=== PATIENT | female | born 1990 | race American Indian/Alaskan Native ===

== ENCOUNTER 2021-06-09 09:05 | Outpatient (REF) | payer OTHER, SELFPAY ==
[2021-06-09 10:54] LABS: MANUAL DIFF FLAG NO
[2021-06-09 10:58] LABS: Basophils Percent Auto 0.4 % (0-2); Eosinophils Absolute Auto 0.3 X10*3/uL (0.0-0.4); Eosinophils Percent Auto 3.8 % (0-4); Hematocrit 43.2 % (37.0-47.0); Hemoglobin 14.5 g/dl (12.0-16.0); Imm Gran Abs Auto 0.03 X10*3/uL (0.00-0.03); Imm Gran Pct Auto 0.3 % (0.0-0.4); Lymphocytes Absolute Auto 1.7 X10*3/uL (1.2-4.9); Lymphocytes Percent Auto 18.7 % (20-40); Mean Corpuscular HGB Conc 33.6 g/dl (31.0-35.0); Mean Corpuscular Hemoglobin 29.6 pg (27.0-33.0); Mean Corpuscular Volume 88.2 fL (80.0-98.0); Mean Platelet Volume 9.5 fL (9.4-12.3); Monocytes Absolute Auto 0.4 X10*3/uL (0.1-1.2); Monocytes Percent Auto 4.3 % (2-11); Neutrophils Absolute Auto 6.5 x10*3/uL (2.0-8.3); Neutrophils Percent Auto 72.5 % (45-73); Platelet Count 377 X10*3/uL (160-400); Red Cell Distribution Width 12.2 % (11.0-16.0); White Blood Count 8.9 X10*3/uL (4.8-10.8)
[2021-06-09 11:39] LABS: Alanine Aminotransferase 16 U/L (0-31); Albumin Level 3.8 g/dL (3.5-5.0); Alkaline Phosphatase 93 U/L (39-117); Anion Gap 11 (12-20); Aspartate Amino Transferase 14 U/L (5-31); Bilirubin Total 0.3 mg/dL (0.0-1.0); Blood Urea Nitrogen 10 mg/dL (9-16); Calcium 8.9 mg/dL (8.4-10.2); Carbon Dioxide 26 mmol/L (22-29); Chloride 106 mmol/L (96-108); Cholesterol 175 mg/dL; Estimated Glomerular Filt Rate > 60; Glucose Fasting 95 mg/dL (60-99); HDL Cholesterol 49 mg/dL; LDL Cholesterol Calculated 104 mg/dl; Potassium 4.5 mmol/L (3.3-5.1); Sodium 138 mmol/L (135-145); Total Protein 6.7 g/dL (6.5-8.0); Triglycerides 111 mg/dL
[2021-06-09 11:51] LABS: Ferritin 64 ng/mL (10-122); TSH reflex Free T4 0.84 uIU/mL (0.32-4.0)
[2021-06-11 08:32] LABS: Vitamin B12 231 pg/mL (200-900)
[2021-06-14 14:36] LABS: Vitamin D 25-OH, D2 <4 ng/mL; Vitamin D 25-OH, D3 20 ng/mL; Vitamin D 25-OH, Total 20 ng/mL (30-100)
== END 2021-06-09 09:06 | disposition home or self-care (01) ==
LOC: HO.HMGCLDS 09:05
PROVIDERS: PCP Internal Medicine; Visit Provider Internal Medicine
DX: E66.09 Other obesity due to excess calories (principal); F41.1 Generalized anxiety disorder; L65.9 Nonscarring hair loss, unspecified; R51.9 Headache, unspecified; Z13.9 Encounter for screening, unspecified
CPT/HCPCS: 36415; 80053; 80061; 82306; 82607; 82728; 84443; 85025

== ENCOUNTER → 2021-10-03 13:17 | Outpatient (BNVA) | payer OTHER, SELFPAY | PROVIDERS: PCP Internal Medicine; Visit Provider Physician Assistant | DX: T23.242A Burn of second degree of multiple left fingers (nail), including thumb, initial encounter (principal); X58.XXXA Exposure to other specified factors, initial encounter | CPT/HCPCS: 99203 ==

== ENCOUNTER → 2021-10-05 08:57 | Outpatient (BNVA) | payer OTHER, SELFPAY | PROVIDERS: PCP Internal Medicine; Visit Provider Physician Assistant | DX: T23.242A Burn of second degree of multiple left fingers (nail), including thumb, initial encounter (principal); X08.8XXA Exposure to other specified smoke, fire and flames, initial encounter | CPT/HCPCS: 99213 ==

== ENCOUNTER 2022-03-30 09:50 | Outpatient (REF) | payer OTHER, SELFPAY ==
[2022-03-30 11:40] LABS: MANUAL DIFF FLAG NO
[2022-03-30 11:53] LABS: Basophils Absolute Auto 0.1 X10*3/uL (0.0-0.2); Basophils Percent Auto 0.5 % (0-2); Eosinophils Absolute Auto 0.3 X10*3/uL (0.0-0.4); Eosinophils Percent Auto 2.9 % (0-4); Hematocrit 44.4 % (37.0-47.0); Imm Gran Abs Auto 0.03 X10*3/uL (0.00-0.03); Imm Gran Pct Auto 0.3 % (0.0-0.4); Lymphocytes Absolute Auto 2.7 X10*3/uL (1.2-4.9); Lymphocytes Percent Auto 24.9 % (20-40); Mean Corpuscular HGB Conc 33.8 g/dl (31.0-35.0); Mean Corpuscular Hemoglobin 29.6 pg (27.0-33.0); Mean Corpuscular Volume 87.7 fL (80.0-98.0); Mean Platelet Volume 9.6 fL (9.4-12.3); Monocytes Absolute Auto 0.6 X10*3/uL (0.1-1.2); Monocytes Percent Auto 5.1 % (2-11); Neutrophils Absolute Auto 7.2 x10*3/uL (2.0-8.3); Neutrophils Percent Auto 66.3 % (45-73); Platelet Count 365 X10*3/uL (160-400); Red Blood Count 5.06 X10*6/uL (4.20-5.50); Red Cell Distribution Width 12.6 % (11.0-16.0); White Blood Count 10.9 X10*3/uL (4.8-10.8)
[2022-03-30 12:04] LABS: Alanine Aminotransferase 13 U/L (0-31); Albumin Level 4.4 g/dL (3.5-5.0); Alkaline Phosphatase 98 U/L (39-117); Anion Gap 15 (12-20); Aspartate Amino Transferase 16 U/L (5-31); Bilirubin Total 0.6 mg/dL (0.0-1.0); Blood Urea Nitrogen 9 mg/dL (9-16); Calcium 9.4 mg/dL (8.4-10.2); Carbon Dioxide 25 mmol/L (22-29); Chloride 101 mmol/L (96-108); Estimated Glomerular Filt Rate > 60; Glucose Random 89 mg/dL (60-115); Potassium 4.4 mmol/L (3.3-5.1); Sodium 137 mmol/L (135-145); Total Protein 7.5 g/dL (6.5-8.0)
[2022-03-30 12:26] LABS: TSH reflex Free T4 1.07 uIU/mL (0.32-4.0)
[2022-04-01 22:32] LABS: Thyroglobulin Antibodies <1 IU/mL (< or = 1)
== END 2022-03-30 09:51 | disposition home or self-care (01) ==
LOC: HO.HMGCLDS 09:50
PROVIDERS: PCP Internal Medicine; Visit Provider Internal Medicine
DX: B00.1 Herpesviral vesicular dermatitis (principal); L65.9 Nonscarring hair loss, unspecified; L60.3 Nail dystrophy; M79.10 Myalgia, unspecified site; R53.83 Other fatigue; E66.09 Other obesity due to excess calories
CPT/HCPCS: 36415; 80053; 84443; 85025; 86800

== ENCOUNTER 2023-02-10 09:16 | Outpatient (AMB) | payer OTHER, SELFPAY ==
--- NOTE | 2023-02-10 10:09 | AM.OFFWIN_ITS ---
Intake Vital Signs 02/10/23 10:10 Height 5 ft 3 in Weight 215 lb BMI 38.1 BP 132/80 Blood Pressure Location Rt brachial Position Sitting Pulse 98 Pulse Source Pulse Oximeter Temp 97.5 F Temp Source Temporal Artery Scan Pulse Oximetry (%) 100 Oxygen Delivery Method Room Air Intake Visit Reasons: EST/possible ear infection/[phone] Intake Note: Pt is here c/o possible bilateral ear infection. Pt state she also feels sinus pressure. Patient Tobacco Use Status: Never used Tobacco Allergies No Known Allergies [No Known Allergies*] Allergy (Verified 02/10/23 10:42) Medication List - Last Reconciled 02/10/23 by Dawson Bowen MD No Known Home Meds Do you need a note to return to daycare/school/sports/work: Yes HPI EST/possible ear infection/[phone] HPI Details Patient presents for a sick visit. Reporting symptoms of sinus congestion, sore throat and difficulty swallowing. Low-grade fever. No family member is sick. No recent travel. Patient reports symptoms of malaise and f atigue. 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 Cognitive needs: No Hearing needs: No Vision needs: No Physical Exam Vital Signs: Last Vital Signs Temp 97.5 F 02/10/23 10:10 Pulse 98 02/10/23 10:10 BP 132/80 02/10/23 10:10 Pulse Ox 100 02/10/23 10:10 Oxygen Delivery Method Room Air 02/10/23 10:10 BMI result Body Mass Index 38.1 Const General: cooperative and healthy appearing Nutritional Appearance: well nourished Orientation/consciousness: patient oriented x3 Limitations: no limitations HEENT Head: Yes normal to inspection Eyes General: appearance normal, both eyes and all related structures Neck Neck: Yes normal visual inspection Chest Chest palpation & inspection: normal palpation of entire chest wall Resp Effort & Inspection: normal respiratory effort Neuro General: patient oriented x3 Assessment & Plan Assessment & Plan (1) Upper respiratory tract infection: Code(s): J06.9 - Acute upper respiratory infection, unspecified Plan: Antibiotics ordered. Increase fluid intake. Tylenol for aches and pains. If symptoms worsen, follow-up here for a recheck. Coding Level of Care Code Est Pt Level 3 (21160) Diagnoses Upper respiratory tract infection J06.9
[2023-02-10 10:10] VITALS: BP 132/80; PULSE 98; TEMP 36.4; O2SAT 100; BMI 38.1
== END 2023-02-10 11:04 | disposition home or self-care (01) ==
PROVIDERS: PCP Internal Medicine; Visit Provider Internal Medicine
DX: J06.9 Acute upper respiratory infection, unspecified (principal)
CPT/HCPCS: 99213

== ENCOUNTER 2023-03-27 08:47 | Outpatient (AMB) | payer OTHER, SELFPAY ==
[2023-03-27 08:54] VITALS: BP 128/72; PULSE 96; TEMP 36.8; O2SAT 99; BMI 38.0
--- NOTE | 2023-03-27 08:54 | A.OFFVIS_ITS ---
Intake Vital Signs 03/27/23 08:54 Height 5 ft 3 in Weight 214 lb 6 oz BMI 38.0 BP 128/72 Blood Pressure Location Rt brachial Position Sitting Pulse 96 Pulse Source Pulse Oximeter Temp 98.2 F Temp Source Oral Pulse Oximetry (%) 99 Oxygen Delivery Method Room Air Intake Visit Reasons: EST/trouble breathing/wet cough(lobby masked) Intake Note: Pt presents to the office today for c/o congestion symptoms. Pt states she has had these symptoms for a week and a half. Pt states she is having a lot of mucus buildup, wet cough, chest congestion, and a sore throat that comes and goes. Allergies No Known Allergies [No Known Allergies*] Allergy (Verified 03/27/23 08:58) HPI HPI Comments History of Present Illness Details 33 yo f that presents for cough, chest c ongestion, and runny nose x 7 days. Denies fever, chills, or hx of PNA. Started as upper symptoms and has moved into the chest. 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 Cognitive needs: No Hearing needs: No Vision needs: No Review of Systems Resp Reports chest congestion, Reports cough and Reports excessive phlegm production Physical Exam Vital Signs: Last Vital Signs Temp 98.2 F 03/27/23 08:54 Pulse 96 03/27/23 08:54 BP 128/72 03/27/23 08:54 Pulse Ox 99 03/27/23 08:54 Oxygen Delivery Method Room Air 03/27/23 08:54 BMI result Body Mass Index 38.0 Const General: cooperative, no acute distress and alert Orientation/consciousness: patient oriented x3 Limitations: no limitations HEENT Head: Yes normal to inspection Ears: hearing grossly normal bilaterally and external ears normal General nose exam: Normal external nose present Eyes General: appearance normal, both eyes and all related structures Neck Neck: Yes normal visual inspection Chest Chest palpation & inspection: normal inspection of the chest Resp Effort & Inspection: normal respiratory effort, able to speak in complete sentences and no audible wheezes Auscultation: clear to auscultation bilaterally Cardio Rate: regular rate Rhythm: regular rhythm GI Inspection: Yes normal to inspection Palpation (GI): Soft to palpation and nontender Skin General skin exam: no rashes or lesions noted Neuro General: patient oriented x3 Psych Appearance: grossly normal Mental Status: mental status grossly normal Speech and movement: Normal speech and movement present Affect: normal affect Attitude: cooperative Thought process: Normal thought process present Thought content: Normal thought content present Results AMB Rapid Strep AMB Rapid Strep Negative Last Edit by Haliam Michaels MA on 03/27/23 09:08 Results Reviewed Results Reviewed: Laboratory Last Values Strep Scn [facility] Negative 03/27/23 09:04 Assessment & Plan Assessment & Plan (1) Bronchitis: Code(s): J40 - Bronchitis, not specified as acute or chronic Plan: VSS. Exam unremarkable w/ exception of cough. signs and symptoms consistent w/ bronchitis. will provide symptomatic treat w/ albuterol, prednisone and tessalon pearls. Discharge instructions, follow up and treatment are discussed with patient in my usual fashion. Alternatives in treatment are also discussed. The patient will return for worsening symptoms or as needed. Advised that any labs/imaging ordered will be followed up on and contact made if further treatment needed. Counseled that patient's condition may require further evaluation and/or treatment. Symptoms of concern for worsening disorder discussed in detail in my customary manner. Patient does verbalize understanding of the plan, there are no apparent barriers to communication. The patient is given the opportunity to ask questions and have them answered to his/her satisfaction Orders: Orders AMB Rapid Strep Screen Today Z13.9 - Encounter for screening, unspecified Medications: New albuterol sulfate 90 mcg/actuation 2 puffs inhalation Q6H PRN 6.7 grams 0RF shortness of breath or wheezing prednisone 40 mg (2 x 20 mg) PO DAILY 10 tabs 0RF 5 days benzonatate 100 mg PO BID PRN 10 caps 0RF cough Coding Level of Care Code Est Pt Level 3 (31630) Diagnoses Bronchitis J40
== END 2023-03-27 09:12 | disposition home or self-care (01) ==
PROVIDERS: PCP Internal Medicine; Visit Provider Physician Assistant
DX: J40 Bronchitis, not specified as acute or chronic (principal)
CPT/HCPCS: 87880; 99213

== ENCOUNTER 2023-04-02 12:22 | Outpatient (AMB) | payer OTHER, SELFPAY ==
--- NOTE | 2023-04-02 12:24 | MHC.PC.OV ---
Vital Signs 04/02/23 12:25 Height 5 ft 3 in Weight 212 lb 6 oz BMI 37.6 BP 136/90 H Blood Pressure Location Lt brachial Position Sitting Pulse 87 Pulse Source Pulse Oximeter Pulse Oximetry (%) 99 Oxygen Delivery Method Room Air Intake Visit Reasons: [place] [facility] /Bronchitis Allergies No Known Allergies [No Known Allergies*] Allergy (Verified 04/02/23 12:25) Medication List - Last Reconciled 04/02/23 by Alden Ramos MD albuterol sulfate 90 mcg/actuation 2 puffs inhalation Q6H PRN benzonatate 100 mg PO BID PRN Tobacco use date assessed: 04/02/23 Dental Screening Dental Screen Date: 04/02/23 Did you have a dental visit in the last 12 months?: No Did you have a dental problem in the last 6 months where you did not have access to dental care?: No Was dental information given to patient?: Patient has dentist HPI [place] [facility] /Bronchitis HPI Details Patient is 33-year-old female who was seen in walk-in clinic March 27 for cough and congestion She was treated symptomatically only with Tessalon Perles and prednisone Patient says that her symptoms are worse now she is spitting out green phlegm and sometimes feel burning sensation when she is coughing She is also having panic attack because of her sickness, she says that her kids are now sick as well. I have ordered chest x-ray for the patient 6tablets of lorazepam sent for her anxiety Azithromycin and prednisone prescribed. 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 1. Little interest or pleasure in doing things: not at all 2. Feeling down, depressed, or hopeless: several days 3. Trouble falling or staying asleep, or sleeping too much: several days 4. Feeling tired or having little energy: more than half the days 5. Poor appetite or overeating: not at all 6. Feeling bad about yourself - or that you are a failure or have let yourself or your family down: not at all 7. Trouble concentrating on things, such as reading the newspaper or watching television: not at all 8. Moving or speaking so slowly that other people could have noticed. Or the opposite - being so fidgety or restless that you have been moving around a lot more than usual: not at all 9. Thoughts that you would be better off or of hurting yourself in some way: not at all Total score: 4 Depression Screening Interpretation: Negative Depression Screening Done: Yes 39838 - PHQ-9 Billing: Yes Source: Developed by Drs. Michael Solis, Franca Cronin, Price Orozco and colleagues, with an educational linda from [employer]. Thrive Questionnaire Date Thrive assessed: 04/02/23 I am a: Patient What is your living situation today?: I have a steady place to live Within the past 12 months, did the food you bought not last and you didn't have the money to get more?: Never true Within the past 12 months, did you worry whether your food would run out before you got money to buy more?: Never true Do you have trouble paying for medicines?: No Do you have trouble getting transportation to medical appointments?: No Do you have trouble paying your heating and electricity bill?: No Do you have trouble taking care of your child, family member or friend?: No Do you have trouble with day-to-day activities such as bathing, preparing meals, shopping, managing finances, etc.?: No Are you currently unemployed and looking for a job?: No Are you interested in more education?: No Please select the resources that you would like help with: None Currently or been in a relationship where the following occur: no concerns reported AUDIT C Alcohol Use Questionnaire (AUDIT-C) 1. How often do you have a drink containing alcohol?: 2-3 times a week 2. How many drinks containing alcohol do you have on a typical day when you are drinking?: 3 or 4 3. How often do you have six or more drinks on one occasion?: Never Total Score: 4 RAISSA-7 AMB Questionnaire RAISSA-7 Date RAISSA - 7 assessed: 04/02/23 Feeling nervous, anxious, or on edge: 1 = Several days Not being able to stop or control worryin = Several days Worrying too much about different things: 0 = Not at all Trouble relaxin = Several days Being so restless that it is hard to sit still: 1 = Several days Becoming easily annoyed or irritable: 0 = Not at all Feeling afraid as if something awful might happen: 0 = Not at all Total RAISSA-7 score (0-4 normal; 5-9 mild; 10-14 moderate; 15-21 severe): 4 Source: Developed by Drs. Michael Solis, Franca Cronin, Price Orozco and colleagues, with an educational linda from [employer]. RAISSA-7 Assessment Billing RAISSA-7 Assessment Tool: RAISSA-7 Assessment 28825 Review of Systems Const Denies chills and Denies fever(s) ENT Denies epistaxis and Denies nasal discharge Resp Denies hemoptysis GI Denies diarrhea and Denies nausea Skin/Breast Denies rash Neuro Reports no additional complaints Psych Reports no additional complaints Endo Reports no additional complaints Physical exam (Primary Care) Vital Signs: Last Vital Signs Pulse 87 04/02/23 12:25 BP 136/90 H 04/02/23 12:25 Pulse Ox 99 04/02/23 12:25 Oxygen Delivery Method Room Air 04/02/23 12:25 BMI result Body Mass Index 37.6 Tobacco/Smoking Status: Tobacco use Status Tobacco use date assessed 04/02/23 04/02/23 12:29 Patient Tobacco Use Status Never used Tobacco 04/02/23 12:29 e-Cigarette/Vaping Use Never Used 04/02/23 12:29 PHQ-9: PHQ-9 Score PHQ-9: Total score 4 04/02/23 12:50 Depression Screening Interpretation: Negative Thrive Assessment: Date of Thrive Assessment Date Thrive assessed 04/02/23 04/02/23 12:50 Currently or been in a relationship where the following occur: no concerns reported Const General: cooperative, comfortable and no acute distress Orientation/consciousness: patient oriented x3 HENMT Head: Yes normocephalic Eyes General: appearance normal, both eyes and all related structures Neck Neck: Yes supple Resp Effort & Inspection: normal respiratory effort and no stridor Cardio Rhythm: regular rhythm Heart sounds: S1 normal heart sound present and S2 normal heart sound present Skin General skin exam: turgor normal Neuro General: patient oriented x3, tone normal and moves all extremities Extrem Right lower extremity: no edema Left lower extremity: no edema Assessment and Plan Assessment & Plan (1) Acute bronchitis: Code(s): J20.9 - Acute bronchitis, unspecified Qualifiers: Bronchitis organism: other organism Qualified Code(s): J20.8 - Acute bronchitis due to other specified organisms (2) Respiratory tract congestion with cough: Code(s): R05.8 - Other specified cough (3) Severe anxiety with panic: Code(s): F41.0 - Panic disorder [episodic paroxysmal anxiety] Plan Patient is 33-year-old female who was seen in walk-in clinic March 27 for cough and congestion She was treated symptomatically only with Tessalon Perles and prednisone Patient says that her symptoms are worse now she is spitting out green phlegm and sometimes feel burning sensation when she is coughing She is also having panic attack because of her sickness, she says that her kids are now sick as well. I have ordered chest x-ray for the patient 6 tablets of lorazepam sent for her anxiety Azithromycin and prednisone prescribed. Patient is to return in 1 week for follow-up Note given to be off work today and tomorrow She is to rest and push fluids Orders: Orders XR chest 2V Today R05.8 - Other specified cough Medications: New azithromycin Take 2 tablets today then 1 daily 250 mg PO ONCE 6 tabs 0RF 5 days J06.9 - Acute upper respiratory infection, unspecified prednisone 20 mg PO DAILY 5 tabs 0RF 5 days lorazepam 0.5 mg PO BID PRN 6 tabs 0RF anxiety 3 days Coding Level of Care Code Est Pt Level 4 (86502) Diagnoses Acute bronchitis due to other specified organisms J20.8 Bronchitis organism: other organism Respiratory tract congestion with cough R05.8 Severe anxiety with panic F41.0 Additional Codes RAISSA-7 Assessment Billing - RAISSA-7 Assessment Tool: RAISSA-7 Assessment 66610 ([id number])
[2023-04-02 12:25] VITALS: BP 136/90; PULSE 87; O2SAT 99; BMI 37.6
== END 2023-04-02 12:47 | disposition home or self-care (01) ==
PROVIDERS: PCP Internal Medicine; Visit Provider Internal Medicine
DX: J20.8 Acute bronchitis due to other specified organisms (principal); R05.8 Other specified cough; F41.0 Panic disorder [episodic paroxysmal anxiety]
CPT/HCPCS: 99214

== ENCOUNTER 2023-04-02 12:53 | Outpatient (REF) | payer OTHER, SELFPAY ==
--- NOTE | ~2023-04-02 | XR_ITS ---
EXAMINATION: XR CHEST CLINICAL INFORMATION: Cough COMPARISON: Previous chest x-ray July 2016 TECHNIQUE: 2 views of the chest were obtained. FINDINGS: No significant abnormality is noted involving the heart, lungs, mediastinum, bony thorax or soft tissues. XR/XR chest 2V IMPRESSION: Unremarkable examination.
== END 2023-04-02 12:54 | disposition home or self-care (01) ==
LOC: HO.HMGCX 12:53
PROVIDERS: PCP Internal Medicine; Visit Provider Internal Medicine
DX: R05.8 Other specified cough (principal)
CPT/HCPCS: 71046

== ENCOUNTER 2023-05-15 08:23 | Outpatient (AMB) | payer OTHER, SELFPAY ==
--- NOTE | 2023-05-15 08:23 | MHC.PC.OV ---
Intake Visit Reasons: Anxiety, ok per Dr Kline Jewel Bearing Grinder Required: No Accompanied by: Self / Same As Patient Allergies No Known Allergies [No Known Allergies*] Allergy (Verified 05/15/23 08:23) Medication List - Last Reconciled 05/15/23 by Alden Ramos MD No Known Home Meds Tobacco use date assessed: 04/02/23 Dental Screening Dental Screen Date: 05/15/23 Did you have a dental visit in the last 12 months?: Yes Did you have a dental problem in the last 6 months where you did not have access to dental care?: No Was dental information given to patient?: Patient has dentist HPI Sammi ok per Dr Kline HPI Details Patient is 33-year-old female who suffers from anxiety and panic Patient says that she has had this for a very long time, even when she was a teenager she was having the problem She also suffers from OCD. Patient says that years ago when her symptoms were flared she was given Klonopin and she did well She took it for 1 and half year and after that patient was able to get off. Patient says that at times when she is eating she feels as if she cannot swallow and then she start having obsessive compulsive thoughts about it that she will not be able to swallow and then she can not eat. I have sent Klonopin 0.5 mg tablets patient may take that 1 a day as needed. 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 1. Little interest or pleasure in doing things: several days 2. Feeling down, depressed, or hopeless: not at all 3. Trouble falling or staying asleep, or sleeping too much: several days 4. Feeling tired or having little energy: more than half the days 5. Poor appetite or overeating: more than half the days 6. Feeling bad about yourself - or that you are a failure or have let yourself or your family down: several days 7. Trouble concentrating on things, such as reading the newspaper or watching television: several days 8. Moving or speaking so slowly that other people could have noticed. Or the opposite - being so fidgety or restless that you have been moving around a lot more than usual: several days 9. Thoughts that you would be better off or of hurting yourself in some way: not at all Total score: 9 Depression Screening Interpretation: Positive Depression Screening Follow-up: In treatment Depression Screening Done: Yes 57141 - PHQ-9 Billing: Yes Source: Developed by Drs. Michael Solis, Franca Cronin, Price Orozco and colleagues, with an educational linda from [employer]. Thrive Questionnaire Date Thrive assessed: 04/02/23 RAISSA-7 AMB Questionnaire RAISSA-7 Date RAISSA - 7 assessed: 05/15/23 Feeling nervous, anxious, or on edge: 2 = More than half the days Not being able to stop or control worryin = Several days Worrying too much about different things: 2 = More than half the days Trouble relaxin = More than half the days Being so restless that it is hard to sit still: 2 = More than half the days Becoming easily annoyed or irritable: 2 = More than half the days Feeling afraid as if something awful might happen: 1 = Several days Total RAISSA-7 score (0-4 normal; 5-9 mild; 10-14 moderate; 15-21 severe): 12 Source: Developed by Drs. Michael Solis, Franca Cronin, Price Orozco and colleagues, with an educational linda from [employer]. RAISSA-7 Assessment Billing RAISSA-7 Assessment Tool: RAISSA-7 Assessment 82090 (Treatment started) Review of Systems Const Denies chills and Denies fever(s) ENT Denies epistaxis and Denies nasal discharge Card Denies chest pain Resp Denies chest congestion, Denies cough and Denies hemoptysis GI Denies diarrhea and Denies nausea Skin/Breast Denies rash Neuro Reports no additional complaints Psych Reports no additional complaints Endo Reports no additional complaints Physical exam (Primary Care) Tobacco/Smoking Status: Tobacco use Status Tobacco use date assessed 04/02/23 05/15/23 08:27 Patient Tobacco Use Status Never used Tobacco 05/15/23 08:27 e-Cigarette/Vaping Use Never Used 05/15/23 08:27 PHQ-9: PHQ-9 Score PHQ-9: Total score 9 05/15/23 08:27 Depression Screening Interpretation: Positive Depression Screening Follow-up: In treatment Thrive Assessment: Date of Thrive Assessment Date Thrive assessed 04/02/23 05/15/23 08:27 Telehealth Telehealth Location of provider rendering services: practice address Location of patient: address on file Patient Identification confirmed using: Name, : Yes Telehealth method: video Patient verbally consented to treatment: Yes Patient verbally consented to billing insurance company: Yes Patient informed of any privacy concerns related to visit: Yes Minutes spent on Phone/Video with Pt.: 14 Assessment and Plan Assessment & Plan (1) Severe anxiety with panic: Code(s): F41.0 - Panic disorder [episodic paroxysmal anxiety] (2) Obsessive compulsive disorder: Code(s): F42.9 - Obsessive-compulsive disorder, unspecified Qualifiers: Obsessive-compulsive disorder type: mixed obsessional thoughts and acts Qualified Code(s): F42.2 - Mixed obsessional thoughts and acts Plan Patient is 33-year-old female who suffers from anxiety and panic Patient says that she has had this for a very long time, even when she was a teenager she was having the problem She also suffers from OCD. Patient says that years ago when her symptoms were flared she was given Klonopin and she did well She took it for 1 and half year and after that patient was able to get off. Patient says that at times when she is eating she feels as if she cannot swallow and then she start having obsessive compulsive thoughts about it that she will not be able to swallow and then she can not eat. I have sent Klonopin 0.5 mg tablets patient may take that 1 a day as needed. We will book and other telemedicine visit in 2 weeks, we also discussed adding fluoxetine if Klonopin alone did not Medications: New clonazepam (Klonopin) 0.5 mg PO DAILY 30 days 30 tabs 0RF Discontinued lorazepam Discontinued Reason: Doctor's Order 0.5 mg PO BID 3 days PRN 6 tabs 0RF anxiety Coding Level of Care Code Tele Est Pt Level 3 (76228) Diagnoses Severe anxiety with panic F41.0 Mixed obsessional thoughts and acts F42.2 Obsessive-compulsive disorder type: mixed obsessional thoughts and acts Additional Codes RAISSA-7 Assessment Billing - RAISSA-7 Assessment Tool: RAISSA-7 Assessment 60940 ([id number])
== END 2023-05-15 08:56 | disposition home or self-care (01) ==
LOC: HO.HMGC 08:23
PROVIDERS: PCP Internal Medicine; Visit Provider Internal Medicine
DX: F41.0 Panic disorder [episodic paroxysmal anxiety] (principal); F42.2 Mixed obsessional thoughts and acts
CPT/HCPCS: 96127; 99213

== ENCOUNTER 2023-06-05 08:27 | Outpatient (AMB) | payer OTHER, SELFPAY ==
--- NOTE | 2023-06-05 09:13 | MHC.PC.OV ---
Intake Visit Reasons: 3 week follow up Allergies No Known Allergies [No Known Allergies*] Allergy (Verified 06/05/23 09:13) Medication List - Last Reconciled 06/05/23 by Alden Ramos MD clonazepam (Klonopin) 0.5 mg PO DAILY 30 days Tobacco use date assessed: 06/05/23 Dental Screening Dental Screen Date: 06/05/23 Did you have a dental visit in the last 12 months?: No Did you have a dental problem in the last 6 months where you did not have access to dental care?: No Was dental information given to patient?: Patient has dentist HPI 3 week follow up HPI Details Patient is 33-year-old female who suffers from anxiety and panic and OCD Her OCD was causing problem with swallowing as patient keep thinking if she is going to choke when she is swallowing I started her on Klonopin 0.5 mg she is doing better however continued to have the anxiety, increasing the dose to b.i.d. We are also adding fluoxetine 20 mg today. 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 How often do you have a drink containing alcohol?: 2-3 times a week 2. How many drinks containing alcohol do you have on a typical day when you are drinking?: 5 or 6 3. How often do you have six or more drinks on one occasion?: Less than monthly Total Score: 6 Score Reviewed/Action Taken: Yes RAISSA-7 AMB Questionnaire RAISSA-7 Date RAISSA - 7 assessed: 05/15/23 Feeling nervous, anxious, or on edge: 1 = Several days Not being able to stop or control worryin = Several days Worrying too much about different things: 1 = Several days Trouble relaxin = Several days Being so restless that it is hard to sit still: 0 = Not at all Becoming easily annoyed or irritable: 1 = Several days Feeling afraid as if something awful might happen: 0 = Not at all Total RAISSA-7 score (0-4 normal; 5-9 mild; 10-14 moderate; 15-21 severe): 5 Source: Developed by Drs. Michael Solis, Franca Cronin, Price Orozco and colleagues, with an educational linda from [employer]. RAISSA-7 Assessment Billing RAISSA-7 Assessment Tool: RAISSA-7 Assessment 62391 Review of Systems Const Denies chills and Denies fever(s) ENT Denies epistaxis and Denies nasal discharge Card Denies chest pain Resp Denies chest congestion, Denies cough and Denies hemoptysis GI Denies diarrhea and Denies nausea Skin/Breast Denies rash Neuro Reports no additional complaints Psych Reports no additional complaints Endo Reports no additional complaints Physical exam (Primary Care) Tobacco/Smoking Status: Tobacco use Status Tobacco use date assessed 06/05/23 06/05/23 09:14 Patient Tobacco Use Status Never used Tobacco 06/05/23 09:14 e-Cigarette/Vaping Use Never Used 06/05/23 09:14 Thrive Assessment: Date of Thrive Assessment Date Thrive assessed 04/02/23 06/05/23 09:14 Telehealth Telehealth Location of provider rendering services: practice address Location of patient: address on file Patient Identification confirmed using: Name, : Yes Telehealth method: video Patient verbally consented to treatment: Yes Patient verbally consented to billing insurance company: Yes Patient informed of any privacy concerns related to visit: Yes Minutes spent on Phone/Video with Pt.: 14 Assessment and Plan Assessment & Plan (1) Severe anxiety with panic: Code(s): F41.0 - Panic disorder [episodic paroxysmal anxiety] (2) Obsessive compulsive disorder: Code(s): F42.9 - Obsessive-compulsive disorder, unspecified Qualifiers: Obsessive-compulsive disorder type: mixed obsessional thoughts and acts Qualified Code(s): F42.2 - Mixed obsessional thoughts and acts Plan Patient is 33-year-old female who suffers from anxiety and panic and OCD Her OCD was causing problem with swallowing as patient keep thinking if she is going to choke when she is swallowing I started her on Klonopin 0.5 mg she is doing better however continued to have the anxiety, increasing the dose to b.i.d. We are also adding fluoxetine 20 mg today. We will make a follow-up appointment again in 4 weeks She has reduced consumption of alcohol Medications: New fluoxetine 20 mg PO DAILY 30 days 30 tabs 0RF Changed From clonazepam (Klonopin) 0.5 mg PO DAILY 30 days 30 tabs 0RF To clonazepam (Klonopin) 0.5 mg PO BID 30 days 60 tabs 1RF Coding Level of Care Code Tele New Pt Level 3 (70659) Diagnoses Severe anxiety with panic F41.0 Mixed obsessional thoughts and acts F42.2 Obsessive-compulsive disorder type: mixed obsessional thoughts and acts Additional Codes RAISSA-7 Assessment Billing - RAISSA-7 Assessment Tool: RAISSA-7 Assessment 62430 ([id number])
== END 2023-06-05 13:04 | disposition home or self-care (01) ==
LOC: HO.HMGC 08:27
PROVIDERS: PCP Internal Medicine; Visit Provider Internal Medicine
DX: F41.0 Panic disorder [episodic paroxysmal anxiety] (principal); F42.2 Mixed obsessional thoughts and acts
CPT/HCPCS: 99213

== ENCOUNTER 2023-07-03 08:04 | Outpatient (AMB) | payer OTHER, SELFPAY ==
--- NOTE | 2023-07-03 08:01 | MHC.PC.OV ---
Intake Visit Reasons: 4 WK f/u New Med ~ Allergies fluoxetine Adverse Reaction (Intermediate, Verified 07/03/23 09:07) Abdominal Pain Medication List - Last Reconciled 07/03/23 by Alden Ramos MD clonazepam (Klonopin) 0.5 mg PO BID 30 days Tobacco use date assessed: 07/03/23 Dental Screening Dental Screen Date: 07/03/23 Did you have a dental visit in the last 12 months?: No Did you have a dental problem in the last 6 months where you did not have access to dental care?: No Was dental information given to patient?: Patient has dentist HPI 4 WK f/u New Med ~ HPI Details Patient is 33-year-old female with obsessive-compulsive disorder and anxiety She was started on Klonopin 0.5 mg patient tolerating medication and felt better but her symptoms were not resolved We increase the dose to b.i.d. p.r.n. I also added fluoxetine 20 mg which patient could not tolerate as that started causing abdominal cramping and pain However she is doing well with Klonopin alone Patient is aware that this is a controlled medication and will need 3 month follow-up for refills. 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 How often do you have a drink containing alcohol?: 2-3 times a week 2. How many drinks containing alcohol do you have on a typical day when you are drinking?: 5 or 6 3. How often do you have six or more drinks on one occasion?: Less than monthly Total Score: 6 Score Reviewed/Action Taken: Yes RAISSA-7 AMB Questionnaire RAISSA-7 Date RAISSA - 7 assessed: 05/15/23 Source: Developed by Drs. Michael Solis, Franca Cronin, Price Orozco and colleagues, with an educational linda from [employer]. Review of Systems Const Denies chills and Denies fever(s) ENT Denies epistaxis and Denies nasal discharge Card Denies chest pain Resp Denies chest congestion, Denies cough and Denies hemoptysis GI Denies diarrhea and Denies nausea Skin/Breast Denies rash Neuro Reports no additional complaints Psych Reports no additional complaints Endo Reports no additional complaints Physical exam (Primary Care) Tobacco/Smoking Status: Tobacco use Status Tobacco use date assessed 07/03/23 07/03/23 08:05 Patient Tobacco Use Status Never used Tobacco 07/03/23 08:02 e-Cigarette/Vaping Use Never Used 07/03/23 08:02 Thrive Assessment: Date of Thrive Assessment Date Thrive assessed 04/02/23 07/03/23 08:02 Telehealth Telehealth Location of provider rendering services: practice address Location of patient: address on file Patient Identification confirmed using: Name, : Yes Telehealth method: video Patient verbally consented to treatment: Yes Patient verbally consented to billing insurance company: Yes Patient informed of any privacy concerns related to visit: Yes Minutes spent on Phone/Video with Pt.: 14 Assessment and Plan Assessment & Plan (1) Severe anxiety with panic: Code(s): F41.0 - Panic disorder [episodic paroxysmal anxiety] (2) Obsessive compulsive disorder: Code(s): F42.9 - Obsessive-compulsive disorder, unspecified Qualifiers: Obsessive-compulsive disorder type: mixed obsessional thoughts and acts Qualified Code(s): F42.2 - Mixed obsessional thoughts and acts Plan Patient is 33-year-old female with obsessive-compulsive disorder and anxiety She was started on Klonopin 0.5 mg patient tolerating medication and felt better but her symptoms were not resolved We increase the dose to b.i.d. p.r.n. I also added fluoxetine 20 mg which patient could not tolerate as that started causing abdominal cramping and pain However she is doing well with Klonopin alone Patient is aware that this is a controlled medication and will need 3 month follow-up for refills. Coding Level of Care Code Tele Est Pt Level 3 (53706) Diagnoses Severe anxiety with panic F41.0 Mixed obsessional thoughts and acts F42.2 Obsessive-compulsive disorder type: mixed obsessional thoughts and acts
== END 2023-07-03 16:05 | disposition home or self-care (01) ==
LOC: HO.HMGC 08:04
PROVIDERS: PCP Internal Medicine; Visit Provider Internal Medicine
DX: F41.0 Panic disorder [episodic paroxysmal anxiety] (principal); F42.2 Mixed obsessional thoughts and acts
CPT/HCPCS: 99213

== ENCOUNTER 2023-07-17 11:20 | Outpatient (AMB) | payer OTHER, SELFPAY ==
[2023-07-17 11:25] VITALS: BP 132/80; PULSE 78; TEMP 36.9; O2SAT 98; BMI 38.0
--- NOTE | 2023-07-17 11:25 | MHC.OFFWIV ---
Intake Vital Signs 07/17/23 11:25 Height 5 ft 3 in Weight 214 lb 8 oz BMI 38.0 BP 132/80 Blood Pressure Location Rt brachial Position Sitting Pulse 78 Pulse Source Pulse Oximeter Temp 98.4 F Temp Source Oral Pulse Oximetry (%) 98 Intake Visit Reasons: EP Ear/Jaw pain Intake Note: pt is here today for ear and jaw pain started Patient Tobacco Use Status: Never used Tobacco Allergies fluoxetine Adverse Reaction (Intermediate, Verified 07/17/23 11:27) Abdominal Pain Do you need a note to return to daycare/school/sports/work: Yes PFSH Family History 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
--- NOTE | 2023-07-17 11:25 | AM.OFFWIN_ITS ---
Intake Vital Signs 07/17/23 11:25 Height 5 ft 3 in Weight 214 lb 8 oz BMI 38.0 BP 132/80 Blood Pressure Location Rt brachial Position Sitting Pulse 78 Pulse Source Pulse Oximeter Temp 98.4 F Temp Source Oral Pulse Oximetry (%) 98 Intake Visit Reasons: EP Ear/Jaw pain Intake Note: pt is here for c/o ear and jaw pain left side only for few days Patient Tobacco Use Status: Never used Tobacco Allergies fluoxetine Adverse Reaction (Intermediate, Verified 07/17/23 11:27) Abdominal Pain Do you need a note to return to daycare/school/sports/work: Yes HPI HPI Comments History of Present Illness Details This is a 33-year-old female with a past medical history of anxiety presenting for evaluation of left-sided ear pain and left-sided jaw pain has been worsening since Friday. Patient states that she woke up with the pain on Friday and denies any oral or dental trauma preceding the onset of her symptoms. Patient states that she had a previous root canal in her left lower dentition however has not seen a dentist for the past 2 years. Patient denies having any fevers, chills, sore throat or difficulty swallowing. She has been using ibuprofen and Tylenol [id number] without relief of her discomfort. 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 Cognitive needs: No Hearing needs: No Vision needs: No Review of Systems Const All systems reviewed & are unremarkable except as noted in HPI and below ENT Reports no additional complaints, Reports dental pain (left lower dentition) and Reports otalgia (left) Resp Reports no additional complaints Musc Reports no additional complaints Neuro Reports no additional complaints Physical Exam Vital Signs: Last Vital Signs Temp 98.4 F 07/17/23 11:25 Pulse 78 07/17/23 11:25 BP 132/80 07/17/23 11:25 Pulse Ox 98 02/15/24 11:25 BMI result Body Mass Index 38.0 Const General: cooperative, healthy appearing, comfortable and no acute distress Nutritional Appearance: average body habitus Orientation/consciousness: patient oriented x3 Limitations: no limitations HEENT Head: Yes normal to inspection and Yes normocephalic Ears: hearing grossly normal bilaterally, external ears normal, TM's normal bilaterally and EAC's normal (partial visualization of TMs secondary to cerumen) General nose exam: Normal external nose present and Normal nares present Face and sinus: Yes sinuses nontender, No face symmetric (mild edema overlying left lateral maxilla; no overt sinus tenderness), No fluctuance and Yes Facial tenderness on exam of face and sinuses (left lower dentition with facial palpation) Mouth: Normal oral and palatal mucosa present, oropharynx normal and moist mucous membranes Teeth and gingiva: abnormal dentition (pain to direct palpation of tooth 17-19; gingivae without erythema or edema) and gingiva normal Throat: Yes posterior oropharynx normal and No postnasal drainage Eyes Eyelids: Yes eyelids normal Conjunctivae: conjunctivae normal Sclerae: sclerae normal Corneas: corneas normal Pupils: Equal, round and reactive pupils present EOM: EOMs intact bilaterally Neck Lymphatic: no lymphadenopathy noted Skin General skin exam: no rashes or lesions noted Neuro General: patient oriented x3 Cranial nerves: Yes Equal, round and reactive pupils present Psych Appearance: grossly normal Mental Status: mental status grossly normal Insight: Good insight present (Psych) Judgement: Good judgement present (Psych) Assessment & Plan Assessment & Plan (1) Pain, dental: Comment: Given this patient's history coupled with her examination I am suspicious of an evolving dental abscess. Patient is urged to follow up with her dentist urgently for further evaluation and care. Code(s): K08.89 - Other specified disorders of teeth and supporting structures Plan: Penicillin t.i.d. x 10 days; ibuprofen or Tylenol as needed for discomfort. Formal dental evaluation is urged and pending. Medications: New penicillin V potassium 500 mg PO TID 30 tabs 0RF Coding Level of Care Code Est Pt Level 3 (39096) Diagnoses Pain, dental K08.89 Time Spent (min) 20
== END 2023-07-17 12:26 | disposition home or self-care (01) ==
PROVIDERS: PCP Internal Medicine; Visit Provider Physician Assistant
DX: K08.89 Other specified disorders of teeth and supporting structures (principal)
CPT/HCPCS: 99213

== ENCOUNTER 2023-10-01 13:22 | Outpatient (AMB) | payer OTHER, SELFPAY ==
[2023-10-01 13:23] VITALS: BP 110/70; PULSE 86; O2SAT 99; BMI 36.7
--- NOTE | 2023-10-01 13:23 | MHC.PC.OV ---
Vital Signs 10/01/23 13:23 Height 5 ft 3 in Weight 207 lb BMI 36.7 BP 110/70 Blood Pressure Location Rt brachial Position Sitting Pulse 86 Pulse Source Pulse Oximeter Pulse Oximetry (%) 99 Oxygen Delivery Method Room Air Intake Visit Reasons: 3Month F/u~ Allergies fluoxetine Adverse Reaction (Intermediate, Verified 10/01/23 13:26) Abdominal Pain Medication List - Last Reconciled 10/01/23 by Alden Ramos MD clonazepam (Klonopin) 0.5 mg PO BID 30 days valacyclovir 2,000 mg orally Take 2 tablets 12 hours apart as soon as cold sore appears for 1 day only as needed PRN; 10 days Tobacco use date assessed: 10/01/23 Dental Screening Dental Screen Date: 07/03/23 HPI 3Month F/u~ HPI Details Patient is 33-year-old female with obsessive-compulsive disorder and anxiety and recurrent cold sores She was started on Klonopin 0.5 mg , she is not taking it b.i.d. p.r.n. and is feeling much better Patient could not tolerate fluoxetine as it caused cramping in abdomen She is having recurrent cold sores, I have sent valacyclovir 500 mg patient may start taking 1 daily to prevent the cold sores Patient is aware that this is a controlled medication and will need 3 month follow-up for refills. [facility] Surgical History Hx of left knee surgery Family History Father Hypertension Diabetes COPD (chronic obstructive pulmonary disease) Mother No problems noted. 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 1. Little interest or pleasure in doing things: several days 2. Feeling down, depressed, or hopeless: not at all 3. Trouble falling or staying asleep, or sleeping too much: several days 4. Feeling tired or having little energy: more than half the days 5. Poor appetite or overeating: more than half the days 6. Feeling bad about yourself - or that you are a failure or have let yourself or your family down: several days 7. Trouble concentrating on things, such as reading the newspaper or watching television: several days 8. Moving or speaking so slowly that other people could have noticed. Or the opposite - being so fidgety or restless that you have been moving around a lot more than usual: several days 9. Thoughts that you would be better off or of hurting yourself in some way: not at all Total score: 9 Depression Screening Interpretation: Positive Depression Screening Follow-up: In treatment Depression Screening Done: Yes 24557 - PHQ-9 Billing: Yes Source: Developed by Drs. Michael Solis, Franca Cronin, Price Orozco and colleagues, with an educational linda from [employer]. Thrive Questionnaire Date Thrive assessed: 04/02/23 I am a: Patient What is your living situation today?: I have a steady place to live Within the past 12 months, did the food you bought not last and you didn't have the money to get more?: Never true Within the past 12 months, did you worry whether your food would run out before you got money to buy more?: Never true Please select the resources that you would like help with: None THRIVE Score: 0 AUDIT C Alcohol Use Questionnaire (AUDIT-C) 1. How often do you have a drink containing alcohol?: 2-3 times a week 2. How many drinks containing alcohol do you have on a typical day when you are drinking?: 3 or 4 3. How often do you have six or more drinks on one occasion?: Monthly Total Score: 6 RAISSA-7 AMB Questionnaire RAISSA-7 Date RAISSA - 7 assessed: 05/15/23 Feeling nervous, anxious, or on edge: 2 = More than half the days Not being able to stop or control worryin = Several days Worrying too much about different things: 1 = Several days Trouble relaxin = Several days Being so restless that it is hard to sit still: 0 = Not at all Becoming easily annoyed or irritable: 1 = Several days Feeling afraid as if something awful might happen: 0 = Not at all Total RAISSA-7 score (0-4 normal; 5-9 mild; 10-14 moderate; 15-21 severe): 6 Source: Developed by Drs. Michael Solis, Frnaca Cronin, Price Orozco and colleagues, with an educational linda from [employer]. Review of Systems Const Denies chills and Denies fever(s) ENT Denies epistaxis and Denies nasal discharge Card Denies chest pain Resp Denies chest congestion, Denies cough and Denies hemoptysis GI Denies diarrhea and Denies nausea Skin/Breast Denies rash Neuro Reports no additional complaints Psych Reports no additional complaints Endo Reports no additional complaints Physical exam (Primary Care) Vital Signs: Last Vital Signs Pulse 86 10/01/23 13:23 BP 110/70 10/01/23 13:23 Pulse Ox 99 10/01/23 13:23 Oxygen Delivery Method Room Air 10/01/23 13:23 BMI result Body Mass Index 36.7 Tobacco/Smoking Status: Tobacco use Status Tobacco use date assessed 10/01/23 10/01/23 13:31 Patient Tobacco Use Status Never used Tobacco 10/01/23 13:31 e-Cigarette/Vaping Use Never Used 10/01/23 13:31 Depression Screening Interpretation: Positive Depression Screening Follow-up: In treatment Thrive Assessment: Date of Thrive Assessment Date Thrive assessed 04/02/23 10/01/23 13:31 Const General: cooperative, comfortable and no acute distress Orientation/consciousness: patient oriented x3 HENMT Head: Yes normocephalic Eyes General: appearance normal, both eyes and all related structures Neck Neck: Yes supple Resp Effort & Inspection: normal respiratory effort, no cough and no stridor Cardio Rhythm: regular rhythm Heart sounds: S1 normal heart sound present and S2 normal heart sound present Skin General skin exam: turgor normal Neuro General: patient oriented x3, tone normal and moves all extremities Extrem Right lower extremity: no edema Left lower extremity: no edema Assessment and Plan Assessment & Plan (1) Severe anxiety with panic: Code(s): F41.0 - Panic disorder [episodic paroxysmal anxiety] (2) Obsessive compulsive disorder: Code(s): F42.9 - Obsessive-compulsive disorder, unspecified Qualifiers: Obsessive-compulsive disorder type: mixed obsessional thoughts and acts Qualified Code(s): F42.2 - Mixed obsessional thoughts and acts (3) Herpes labialis: Code(s): B00.1 - Herpesviral vesicular dermatitis Plan Patient is 33-year-old female with obsessive-compulsive disorder and anxiety and recurrent cold sores She was started on Klonopin 0.5 mg , she is not taking it b.i.d. p.r.n. and is feeling much better Patient could not tolerate fluoxetine as it caused cramping in abdomen She is having recurrent cold sores, I have sent valacyclovir 500 mg patient may start taking 1 daily to prevent the cold sores Patient is aware that this is a controlled medication and will need 3 month follow-up for refills. Medications: Changed From valacyclovir (2 x 1 gram) 2,000 mg orally Take 2 tablets 12 hours apart as soon as cold sore appears for 1 day only as needed PRN; 10 days 20 tabs 0RF Cold sore To valacyclovir Take 1 daily 90 tabs 1RF Cold sore 90 days Refilled clonazepam (Klonopin) 0.5 mg PO BID 60 tabs 1RF 30 days Coding Level of Care Code Est Pt Level 3 (50770) Diagnoses Severe anxiety with panic F41.0 Mixed obsessional thoughts and acts F42.2 Obsessive-compulsive disorder type: mixed obsessional thoughts and acts Herpes labialis B00.1
== END 2023-10-01 14:11 | disposition home or self-care (01) ==
PROVIDERS: PCP Internal Medicine; Visit Provider Internal Medicine
DX: F41.0 Panic disorder [episodic paroxysmal anxiety] (principal); F42.2 Mixed obsessional thoughts and acts; B00.1 Herpesviral vesicular dermatitis
CPT/HCPCS: 99213

== ENCOUNTER 2023-10-08 08:16 | Outpatient (AMB) | payer OTHER, SELFPAY ==
[2023-10-08 08:35] VITALS: BP 122/80; PULSE 122; TEMP 36.4; O2SAT 95; BMI 36.7
--- NOTE | 2023-10-08 08:35 | MHC.OFFWIV ---
Intake Vital Signs 10/08/23 08:35 Height 5 ft 3 in Weight 207 lb BMI 36.7 BP 122/80 Blood Pressure Location Lt brachial Position Sitting Pulse 122 H Pulse Source Pulse Oximeter Temp 97.5 F Temp Source Temporal Artery Scan Pulse Oximetry (%) 95 Oxygen Delivery Method Room Air Intake Visit Reasons: EST/cough/ trouble breathing(lobby masked) Intake Note: pt is here today for cough trouble breathing started friday Patient Tobacco Use Status: Never used Tobacco Allergies fluoxetine Adverse Reaction (Intermediate, Verified 10/08/23 08:40) Abdominal Pain Do you need a note to return to daycare/school/sports/work: No HPI HPI Comments History of Present Illness Details 33 y/o female patient who presents to walk in clinic with c/o Cough and trouble breathing since Friday. Reports body chills and fevers at home. She has been taking Acetaminophen for pain relief. [facility]LY [facility] Surgical History Hx of left knee surgery Family History Father Hypertension Diabetes COPD (chronic obstructive pulmonary disease) Mother No problems noted. 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 Cognitive needs: No Hearing needs: No Vision needs: No Physical Exam Vital Signs: Last Vital Signs Temp 97.5 F 10/08/23 08:35 Pulse 122 H 10/08/23 08:35 BP 122/80 10/08/23 08:35 Pulse Ox 95 10/08/23 08:35 Oxygen Delivery Method Room Air 10/08/23 08:35 BMI result Body Mass Index 36.7 Const General: comfortable and no acute distress Nutritional Appearance: obese Orientation/consciousness: patient oriented x3 HEENT Head: Yes normocephalic Ears: external ears normal and TM abnormal obstructed by cerumen bilateral General nose exam: Abnormal mucous membranes and turbinates present boggy and erythematous Face and sinus: Yes sinuses nontender Mouth: moist mucous membranes Throat: Yes posterior oropharynx normal Resp Effort & Inspection: normal respiratory effort, able to speak in complete sentences and Actively coughing Auscultation: no crackles, no rales and rhonchi Cardio Rate: regular rate Rhythm: regular rhythm Neuro General: patient oriented x3, gait normal and moves all extremities Psych Speech and movement: Normal speech and movement present Office Procedures Nebulizer Treatment Nebulizer Treatment 84614-[id number]/MDI RX initial, or Nebulizer Subsequent Treatment Office Meds ipratropium 0.5 mg-albuterol 3 mg (2.5 mg base)/3 mL nebulization soln Performing Provider: Lia Ko NP Performing Location: [facility] Administered by: Lia Ko NP on 10/08/23 09:20 Dose Route Admin Location Dispensed Lot Number Expiration Date [employer] 3 mL inhalation 3 mL [id number] 04/01/25 70324-680-82 [employer]ost[employer] Assessment & Plan Assessment & Plan (1) Upper respiratory tract infection: Code(s): J06.9 - Acute upper respiratory infection, unspecified Qualifiers: URI type: unspecified viral URI Qualified Code(s): J06.9 - Acute upper respiratory infection, unspecified Plan: - Xray chest - Take medicines as directed - Neb in office - OTC cough medicnes - Acetaminophen for pain relief. Orders: Orders XR chest 2V Today J06.9 - Acute upper respiratory infection, unspecified, R06.2 - Wheezing AMB Nebulizer Treatment Today J06.9 - Acute upper respiratory infection, unspecified, R06.2 - Wheezing Medications: New doxycycline hyclate 100 mg PO BID 7 days 14 caps 0RF J06.9 - Acute upper respiratory infection, unspecified, R05.9 - Cough, unspecified ipratropium-albuterol 0.5 mg-3 mg(2.5 mg base)/3 mL 3 mL inhalation ONCE 3 mL 0RF J06.9 - Acute upper respiratory infection, unspecified, R06.2 - Wheezing prednisone 50 mg PO DAILY 5 days 5 tabs 0RF J06.9 - Acute upper respiratory infection, unspecified, R05.9 - Cough, unspecified azithromycin 500 mg PO DAILY 3 days 3 tabs 0RF J06.9 - Acute upper respiratory infection, unspecified, R05.9 - Cough, unspecified benzonatate 100 mg PO TID 30 caps 0RF cough R05.9 - Cough, unspecified albuterol sulfate 90 mcg/actuation 2 puffs inhalation Q4-6H PRN 6.7 grams 0RF shortness of breath or wheezing J06.9 - Acute upper respiratory infection, unspecified, R06.2 - Wheezing Coding Level of Care Code Est Pt Level 4 (03331) Diagnoses Viral upper respiratory tract infection J06.9 URI type: unspecified viral URI CPT Codes Nebulizer Treatment - Nebulizer Treatment, initial or subsequent: [id number]/MDI RX initial, or Nebulizer Subsequent Treatment ([id number]) Time Spent (min) 20
== END 2023-10-08 09:33 | disposition home or self-care (01) ==
PROVIDERS: PCP Internal Medicine; Visit Provider Nurse Practitioner Family
DX: J06.9 Acute upper respiratory infection, unspecified (principal); R06.2 Wheezing
CPT/HCPCS: 94640; 99214; J7620

== ENCOUNTER 2023-10-08 08:51 | Outpatient (REF) | payer OTHER, SELFPAY ==
--- NOTE | ~2023-10-08 | XR_ITS ---
EXAMINATION: XR CHEST CLINICAL INFORMATION: Acute respiratory infection. COMPARISON: 04/02/2023 TECHNIQUE: 2 views of the chest were obtained. FINDINGS: The lungs are well expanded. There is a retrocardiac infiltrate. No pleural effusion. Cardiac silhouette is unchanged. XR/XR chest 2V IMPRESSION: Left lower lobe pneumonia. Follow-up until resolution is advised.
== END 2023-10-08 08:52 | disposition home or self-care (01) ==
LOC: HO.HMGCX 08:51
PROVIDERS: PCP Internal Medicine; Visit Provider Nurse Practitioner Family
DX: J06.9 Acute upper respiratory infection, unspecified (principal); R06.2 Wheezing
CPT/HCPCS: 71046

== ENCOUNTER 2024-01-07 13:18 | Outpatient (AMB) | payer OTHER, SELFPAY ==
[2024-01-07 13:22] VITALS: BP 124/78; PULSE 84; O2SAT 99; BMI 37.2
--- NOTE | 2024-01-07 13:22 | A.OFFPC_ITS ---
Vital Signs 01/07/24 13:22 Height 5 ft 3 in Weight 210 lb BMI 37.2 BP 124/78 Blood Pressure Location Lt brachial Position Sitting Pulse 84 Pulse Source Pulse Oximeter Pulse Oximetry (%) 99 Oxygen Delivery Method Room Air Intake Visit Reasons: Med Follow Up~ Allergies fluoxetine Adverse Reaction (Intermediate, Verified 01/07/24 13:23) Abdominal Pain Medication List - Last Reconciled 01/07/24 by Alden Ramos MD albuterol sulfate 90 mcg/actuation 2 puffs inhalation Q4-6H PRN clonazepam (Klonopin) 0.5 mg PO BID PRN 30 days omeprazole 20 mg PO .qhs valacyclovir Take 1 daily 90 days Tobacco use date assessed: 01/07/24 Dental Screening Dental Screen Date: 01/07/24 Did you have a dental visit in the last 12 months?: Yes Did you have a dental problem in the last 6 months where you did not have access to dental care?: No Was dental information given to patient?: Patient has dentist HPI Med Follow Up~ HPI Details Patient is a 33-year-old female today for medication refill Patient have OCD, she is doing well with clonazepam 0.5 mg once a day Refill sent for 60 tablets, she has appointment for physical exam 02 of March Labs are needed before visit fasting She is also complaining of hoarseness of voice off and on She tells me she loves spicy food. Most likely it is because of reflux I am sending omeprazole 20 mg to be taken at night as a trial BMI is elevated also need to lose weight. [facility]LY [facility] Surgical History Hx of left knee surgery Family History Father Hypertension Diabetes COPD (chronic obstructive pulmonary disease) Mother No problems noted. 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 1. Little interest or pleasure in doing things: several days 2. Feeling down, depressed, or hopeless: not at all 3. Trouble falling or staying asleep, or sleeping too much: not at all 4. Feeling tired or having little energy: several days 5. Poor appetite or overeating: several days 6. Feeling bad about yourself - or that you are a failure or have let yourself or your family down: not at all 7. Trouble concentrating on things, such as reading the newspaper or watching television: not at all 8. Moving or speaking so slowly that other people could have noticed. Or the opposite - being so fidgety or restless that you have been moving around a lot more than usual: not at all 9. Thoughts that you would be better off or of hurting yourself in some way: not at all Total score: 3 Depression Screening Interpretation: Negative Depression Screening Done: Yes 78359 - PHQ-9 Billing: Yes Source: Developed by Drs. Michael Solis, Franca Cronin, Price Orozco and colleagues, with an educational linda from [employer]. Thrive Questionnaire Date Thrive assessed: 01/07/24 I am a: Patient What is your living situation today?: I have a steady place to live Within the past 12 months, did the food you bought not last and you didn't have the money to get more?: Never true Within the past 12 months, did you worry whether your food would run out before you got money to buy more?: Never true Do you have trouble paying for medicines?: No Do you have trouble getting transportation to medical appointments?: No Do you have trouble paying your heating and electricity bill?: No Do you have trouble taking care of your child, family member or friend?: No Do you have trouble with day-to-day activities such as bathing, preparing meals, shopping, managing finances, etc.?: No Are you currently unemployed and looking for a job?: No Are you interested in more education?: No Please select the resources that you would like help with: Housing/Long-Term Currently or been in a relationship where the following occur: No concerns reported THRIVE Score: 0 AUDIT C Alcohol Use Questionnaire (AUDIT-C) 1. How often do you have a drink containing alcohol?: 2-3 times a week 2. How many drinks containing alcohol do you have on a typical day when you are drinking?: 3 or 4 3. How often do you have six or more drinks on one occasion?: Less than monthly Total Score: 5 Score Reviewed/Action Taken: Yes RAISSA-7 AMB Questionnaire RAISSA-7 Date RAISSA - 7 assessed: 01/07/24 Feeling nervous, anxious, or on edge: 1 = Several days Not being able to stop or control worryin = Not at all Worrying too much about different things: 1 = Several days Trouble relaxin = Not at all Being so restless that it is hard to sit still: 0 = Not at all Becoming easily annoyed or irritable: 1 = Several days Feeling afraid as if something awful might happen: 0 = Not at all Total RAISSA-7 score (0-4 normal; 5-9 mild; 10-14 moderate; 15-21 severe): 3 Source: Developed by Drs. Michael Solis, Franca Cronin, Price Orozco and colleagues, with an educational linda from [employer]. RAISSA-7 Assessment Billing RAISSA-7 Assessment Tool: RAISSA-7 Assessment 61588 Review of Systems Const Denies chills and Denies fever(s) ENT Denies epistaxis and Denies nasal discharge Card Denies chest pain Resp Denies chest congestion, Denies cough and Denies hemoptysis GI Denies diarrhea and Denies nausea Skin/Breast Denies rash Neuro Reports no additional complaints Psych Reports no additional complaints Endo Reports no additional complaints Physical exam (Primary Care) Vital Signs: Last Vital Signs Pulse 84 01/07/24 13:22 BP 124/78 01/07/24 13:22 Pulse Ox 99 01/07/24 13:22 Oxygen Delivery Method Room Air 01/07/24 13:22 BMI result Body Mass Index 37.2 Tobacco/Smoking Status: Tobacco use Status Tobacco use date assessed 01/07/24 01/07/24 13:29 Patient Tobacco Use Status Never used Tobacco 01/07/24 13:29 e-Cigarette/Vaping Use Never Used 01/07/24 13:29 PHQ-9: PHQ-9 Score PHQ-9: Total score 3 01/07/24 13:50 Depression Screening Interpretation: Negative Thrive Assessment: Date of Thrive Assessment Date Thrive assessed 01/07/24 01/07/24 13:29 Currently or been in a relationship where the following occur: No concerns reported Const General: cooperative, comfortable and no acute distress Orientation/consciousness: patient oriented x3 HENMT Head: Yes normocephalic Eyes General: appearance normal, both eyes and all related structures Neck Neck: Yes supple Resp Effort & Inspection: normal respiratory effort, no cough and no stridor Cardio Rhythm: regular rhythm Heart sounds: S1 normal heart sound present and S2 normal heart sound present Skin General skin exam: turgor normal Neuro General: patient oriented x3, tone normal and moves all extremities Extrem Right lower extremity: no edema Left lower extremity: no edema Assessment and Plan Assessment & Plan (1) Severe anxiety with panic: Code(s): F41.0 - Panic disorder [episodic paroxysmal anxiety] (2) Obsessive compulsive disorder: Code(s): F42.9 - Obsessive-compulsive disorder, unspecified Qualifiers: Obsessive-compulsive disorder type: mixed obsessional thoughts and acts Qualified Code(s): F42.2 - Mixed obsessional thoughts and acts (3) Hoarseness of voice: Code(s): R49.0 - Dysphonia (4) Obesity due to excess calories: Code(s): E66.09 - Other obesity due to excess calories Plan Patient is a 33-year-old female today for medication refill Patient have OCD, she is doing well with clonazepam 0.5 mg once a day Refill sent for 60 tablets, she has appointment for physical exam 02 of March Labs are needed before visit fasting She is also complaining of hoarseness of voice off and on She tells me she loves spicy food. Most likely it is because of reflux I am sending omeprazole 20 mg to be taken at night as a trial BMI is elevated also need to lose weight. Orders: Orders Complete Blood Count Auto Diff Today E66.09 - Other obesity due to excess calories, F41.0 - Panic disorder [episodic paroxysmal anxiety], F42.2 - Mixed obsessional thoughts and acts, R49.0 - Dysphonia Comprehensive [place]. Panel Fast Today E66.09 - Other obesity due to excess calories, F41.0 - Panic disorder [episodic paroxysmal anxiety], F42.2 - Mixed obsessional thoughts and acts, R49.0 - Dysphonia Vitamin D 25-OH (D2 and D3) Today E66.09 - Other obesity due to excess calorie s, F41.0 - Panic disorder [episodic paroxysmal anxiety], F42.2 - Mixed obsessional thoughts and acts, R49.0 - Dysphonia Lipid Panel Today E66.09 - Other obesity due to excess calories, F41.0 - Panic disorder [episodic paroxysmal anxiety], F42.2 - Mixed obsessional thoughts and acts, R49.0 - Dysphonia TSH reflex Free T4 Today E66.09 - Other obesity due to excess calories, F41.0 - Panic disorder [episodic paroxysmal anxiety], F42.2 - Mixed obsessional thoughts and acts, R49.0 - Dysphonia Referrals [employer] Referral Z01.419 - Encounter for gynecological examination (general) (routine) without abnormal findings Medications: New omeprazole Take on empty stomach if possible 20 mg PO .qhs 90 caps 0RF omeprazole Take on empty stomach if possible 20 mg PO .qhs 90 caps 0RF Changed From clonazepam (Klonopin) 0.5 mg PO BID 30 days 60 tabs 0RF To clonazepam (Klonopin) 0.5 mg PO ONCE 90 days 90 tabs 0RF From clonazepam (Klonopin) 0.5 mg PO ONCE 90 days 90 tabs 0RF To clonazepam (Klonopin) 0.5 mg PO BID PRN 60 tabs 0RF anxiety 30 days Coding Level of Care Code Est Pt Level 3 (23978) Complex EM visit Add On G2211 Diagnoses Severe anxiety with panic F41.0 Mixed obsessional thoughts and acts F42.2 Obsessive-compulsive disorder type: mixed obsessional thoughts and acts Hoarseness of voice R49.0 Obesity due to excess calories E66.09 Additional Codes RAISSA-7 Assessment Billing - RAISSA-7 Assessment Tool: RAISSA-7 Assessment 84107 ([id number])
== END 2024-01-07 13:52 | disposition home or self-care (01) ==
PROVIDERS: PCP Internal Medicine; Visit Provider Internal Medicine
DX: F41.0 Panic disorder [episodic paroxysmal anxiety] (principal); F42.2 Mixed obsessional thoughts and acts; E66.09 Other obesity due to excess calories; Z68.37 Body mass index [BMI] 37.0-37.9, adult; R49.0 Dysphonia
CPT/HCPCS: 99213; G2211

== ENCOUNTER → 2024-01-22 13:42 | Outpatient (BNVA) | payer OTHER, SELFPAY | PROVIDERS: PCP Internal Medicine; Visit Provider Advanced Practice Midwife ==

== ENCOUNTER 2024-03-11 08:52 | Outpatient (REF) | payer OTHER, SELFPAY ==
[2024-03-11 10:08] LABS: MANUAL DIFF FLAG NO
[2024-03-11 10:12] LABS: Basophils Absolute Auto 0.1 X10*3/uL (0.0-0.2); Basophils Percent Auto 0.7 % (0-2); Eosinophils Absolute Auto 0.2 X10*3/uL (0.0-0.4); Eosinophils Percent Auto 2.5 % (0-4); Hemoglobin 14.9 g/dl (12.0-16.0); Imm Gran Abs Auto 0.02 X10*3/uL (0.00-0.03); Imm Gran Pct Auto 0.2 % (0.0-0.4); Lymphocytes Absolute Auto 1.9 X10*3/uL (1.2-4.9); Lymphocytes Percent Auto 21.9 % (20-40); Mean Corpuscular HGB Conc 34.7 g/dl (31.0-35.0); Mean Corpuscular Hemoglobin 30.8 pg (27.0-33.0); Mean Platelet Volume 9.6 fL (9.4-12.3); Monocytes Absolute Auto 0.5 X10*3/uL (0.1-1.2); Monocytes Percent Auto 5.3 % (2-11); Neutrophils Absolute Auto 5.8 x10*3/uL (2.0-8.3); Neutrophils Percent Auto 69.4 % (45-73); Platelet Count 331 X10*3/uL (160-400); Red Blood Count 4.83 X10*6/uL (4.20-5.50); Red Cell Distribution Width 12.3 % (11.0-16.0); White Blood Count 8.4 X10*3/uL (4.8-10.8)
[2024-03-11 11:03] LABS: Alanine Aminotransferase 14 U/L (0-31); Albumin Level 4.2 g/dL (3.5-5.0); Alkaline Phosphatase 79 U/L (39-117); Anion Gap 12 (12-20); Aspartate Amino Transferase 16 U/L (5-31); Bilirubin Total 0.6 mg/dL (0.0-1.0); Blood Urea Nitrogen 10 mg/dL (9-16); Calcium 9.4 mg/dL (8.4-10.2); Carbon Dioxide 24 mmol/L (22-29); Chloride 104 mmol/L (96-108); Cholesterol 188 mg/dL (<200); Estimated Glomerular Filt Rate > 60; Glucose Fasting 93 mg/dL (60-99); HDL Cholesterol 59 mg/dL (>40); LDL Cholesterol Calculated 116 mg/dL (<100); Potassium 4.4 mmol/L (3.3-5.1); Sodium 136 mmol/L (135-145); TSH reflex Free T4 0.85 uIU/mL (0.32-4.0); Total Protein 7.2 g/dL (6.5-8.0); Triglycerides 69 mg/dL (<150)
[2024-03-19 09:38] LABS: Vitamin D 25-OH, D2 6 ng/mL; Vitamin D 25-OH, D3 26 ng/mL; Vitamin D 25-OH, Total 32 ng/mL (30-100)
== END 2024-03-11 08:53 | disposition home or self-care (01) ==
LOC: HO.HMGCLDS 08:52
PROVIDERS: PCP Internal Medicine; Visit Provider Internal Medicine
DX: R49.0 Dysphonia (principal); F42.2 Mixed obsessional thoughts and acts; F41.0 Panic disorder [episodic paroxysmal anxiety]; E66.09 Other obesity due to excess calories
CPT/HCPCS: 36415; 80053; 80061; 82306; 84443; 85025

== ENCOUNTER 2024-03-12 15:10 | Outpatient (AMB) | payer OTHER, SELFPAY ==
--- NOTE | 2024-03-12 15:12 | MHC.PC.OV ---
Vital Signs 03/12/24 15:16 Height 5 ft Weight 211 lb 8 oz BMI 41.3 BP 128/82 Blood Pressure Location Rt brachial Position Sitting Pulse 99 Pulse Source Pulse Oximeter Pulse Oximetry (%) 99 Oxygen Delivery Method Room Air Intake Visit Reasons: Regular visit Allergies fluoxetine Adverse Reaction (Intermediate, Verified 03/12/24 15:12) Abdominal Pain Medication List - Last Reconciled 03/12/24 by Alden Ramos MD albuterol sulfate 90 mcg/actuation 2 puffs inhalation Q4-6H PRN clonazepam (Klonopin) 0.5 mg PO BID PRN 30 days omeprazole 20 mg PO .qhs valacyclovir Take 1 daily 90 days Tobacco use date assessed: 01/07/24 Dental Screening Dental Screen Date: 01/07/24 HPI Regular visit HPI Details Patient is a 34-year-old female came in today for physical examination She is taking Klonopin 0.5 mg once a day and sometimes twice a day for anxiety Patient has started having PMS symptoms, which is presenting with irritable mood I am starting her on venlafaxine 37.5 mg She has appointment with OBGYN in May Patient continued to have hoarseness of voice in spite of taking PPI I am ordering ultrasound of her thyroid gland which seems to be slightly palpable TSH level is normal She just had labs done, reviewed with the patient We will also be booking appointment with ENT for further evaluation She is trying to lose weight patient is morbidly obese She will return in three-month for follow-up [facility] Surgical History Hx of left knee surgery Family History Father Hypertension Diabetes COPD (chronic obstructive pulmonary disease) Mother No problems noted. 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 Cognitive needs: No Hearing needs: No Vision needs: No Questionnaire Thrive Questionnaire Date Thrive assessed: 03/12/24 I am a: Patient What is your living situation today?: I have a steady place to live Within the past 12 months, did the food you bought not last and you didn't have the money to get more?: Never true Within the past 12 months, did you worry whether your food would run out before you got money to buy more?: Never true Do you have trouble paying for medicines?: No Do you have trouble getting transportation to medical appointments?: No Do you have trouble paying your heating and electricity bill?: No Do you have trouble taking care of your child, family member or friend?: No Do you have trouble with day-to-day activities such as bathing, preparing meals, shopping, managing finances, etc.?: No Are you currently unemployed and looking for a job?: No Are you interested in more education?: No Please select the resources that you would like help with: None Currently or been in a relationship where the following occur: No concerns reported THRIVE Score: 0 AUDIT C Alcohol Use Questionnaire (AUDIT-C) 1. How often do you have a drink containing alcohol?: 2-3 times a week 2. How many drinks containing alcohol do you have on a typical day when you are drinking?: 3 or 4 3. How often do you have six or more drinks on one occasion?: Less than monthly Total Score: 5 Score Reviewed/Action Taken: Yes RAISSA-7 AMB Questionnaire RAISSA-7 Date RAISSA - 7 assessed: 01/07/24 Source: Developed by Drs. Michael Solis, Franca Cronin, Price Orozco and colleagues, with an educational linda from [employer]. Review of Systems Const Denies chills, Denies fever(s) and Denies headache(s) Eyes Denies blurry vision ENT Denies headache(s), Denies nasal discharge, Denies nasal obstruction, Denies odynophagia and Denies sinus pain Card Denies chest pain at rest and Denies chest pain with activity Resp Denies cough and Denies hemoptysis GI Denies diarrhea, Denies odynophagia, Denies vomiting and Denies hematemesis Reports as per HPI Musc Denies abnormal gait Skin/Breast Reports as per HPI Neuro Denies Neuro-related abnormal movements, Denies Abnormal speech present, Denies abnormal gait, Denies headache(s) and Denies Sensory deficit (Neuro) Psych Denies mood swings and Denies paranoia Endo Reports as per HPI Star/Lymph Reports as per HPI Aller/Immun Reports as per HPI Physical exam (Primary Care) Vital Signs: Last Vital Signs Pulse 99 03/12/24 15:16 BP 128/82 03/12/24 15:16 Pulse Ox 99 03/12/24 15:16 Oxygen Delivery Method Room Air 03/12/24 15:16 BMI result Body Mass Index 41.3 Tobacco/Smoking Status: Tobacco use Status Tobacco use date assessed 01/07/24 03/12/24 15:12 Patient Tobacco Use Status Never used Tobacco 03/12/24 15:12 e-Cigarette/Vaping Use Never Used 03/12/24 15:12 Thrive Assessment: Date of Thrive Assessment Date Thrive assessed 03/12/24 03/12/24 15:19 Currently or been in a relationship where the following occur: No concerns reported Const General: cooperative, comfortable and no acute distress Orientation/consciousness: patient oriented x3 HENMT Head: Yes normocephalic and Yes atraumatic Eyes General: appearance normal, both eyes and all related structures Pupils: Equal, round and reactive pupils present EOM: EOMs intact bilaterally Neck Neck: Yes supple and No lymphadenopathy Thyroid: Thyroid normal Lymphatic: no lymphadenopathy noted Chest Breast/axilla palpation: normal palpation of the breasts Resp Effort & Inspection: normal respiratory effort and able to speak in complete sentences Auscultation: clear to auscultation bilaterally Cardio Heart sounds: S1 normal heart sound present and S2 normal heart sound present GI Palpation (GI): Soft to palpation and nontender Auscultation: normal bowel sounds General: Yes no CVA tenderness Back/Spine/Pelvis Back: no CVA tenderness Skin General skin exam: elasticity normal and turgor normal Neuro General: patient oriented x3 and gait normal Cranial nerves: Yes Equal, round and reactive pupils present Speech: No Abnormal speech present Sensory Exam: No Sensory deficit (Neuro) Coordination: tandem gait normal and Romberg test negative Extrem General: Yes normal exam except as noted and No edema Coding Level of Care Code Est Pt Level 4 (00806) Est Pt Prev Care 18-39y(41257) Diagnoses Encounter for general adult medical examination with abnormal findings Z00.01 PMS (premenstrual syndrome) N94.3 Severe anxiety with panic F41.0 Hoarseness of voice R49.0 Morbid obesity due to excess calories E66.01 Palpable thyroid E04.9 Assessment & Plan Assessment & Plan (1) Encounter for general adult medical examination with abnormal findings: Code(s): Z00.01 - Encounter for general adult medical examination with abnormal findings Category: Medical (2) PMS (premenstrual syndrome): Code(s): N94.3 - Premenstrual tension syndrome Category: Medical (3) Severe anxiety with panic: Code(s): F41.0 - Panic disorder [episodic paroxysmal anxiety] Category: Medical (4) Hoarseness of voice: Code(s): R49.0 - Dysphonia Category: Medical (5) Morbid obesity due to excess calories: Comment: If your BMI is between 25 and 29.9, you are overweight. If your BMI is 30 or greater, you are obese. ___ Being obese is a problem, because it increases the risks of many different health problems. It can also make it hard for you to move, breathe, and do other things that people who are at a healthy weight can do easily. Plus, being obese can be hard emotionally. ___ What are the health risks of being obese? Being obese increases a persons risk of developing many health problems. Here are just a few examples: __ Diabetes High blood pressure, High cholesterol, Heart disease (including heart attacks) Stroke, Sleep apnea (a disorder in which you stop breathing for short periods while asleep) Asthma, Cancer __ Does being obese shorten a persons life? Yes. Studies show that people who are obese younger than people who are a healthy weight. They also show that the risk of goes up the heavier a person is. The degree of increased risk depends on how long the person has been obese, and on what other medical problems he or she has. , Reduce your carbohydrate intake and choose carbs that are complex. Remember as a general rule of thumb, avoid highly processed foods. If it's white and soft, it's probably been stripped of its nutritional value. Change white bread to whole wheat bread, white rice to brown rice, white potatoes to sweet potatoes, white pasta to whole wheat pasta. Monitor portion sizes too: protein should be no bigger than your fist. Limit your red meat intake to only once or twice a wk. Eat more white meat but make sure to avoid creamy sauces etc. Broiling, baking or grilling is best. Increase dark, green leafy vegetables and fruits. Code(s): E66.01 - Morbid (severe) obesity due to excess calories Category: Medical (6) Palpable thyroid: Code(s): E04.9 - Nontoxic goiter, unspecified Category: Medical Plan Patient is a 34-year-old female came in today for physical examination She is taking Klonopin 0.5 mg once a day and sometimes twice a day for anxiety Patient has started having PMS symptoms, which is presenting with irritable mood I am starting her on venlafaxine 37.5 mg She has appointment with OBGYN in May Patient continued to have hoarseness of voice in spite of taking PPI I am ordering ultrasound of her thyroid gland which seems to be slightly palpable TSH level is normal She just had labs done, reviewed with the patient We will also be booking appointment with ENT for further evaluation She is trying to lose weight patient is morbidly obese She will return in three-month for follow-up Orders: Orders US thyroid Today E04.9 - Nontoxic goiter, unspecified, R49.0 - Dysphonia Referrals Ear/Nose/Throat Referral R49.0 - Dysphonia Medications: New venlafaxine 37.5 mg PO DAILY 90 tabs 0RF Refilled clonazepam (Klonopin) 0.5 mg PO BID 30 days PRN 60 tabs 1RF anxiety
[2024-03-12 15:16] VITALS: BP 128/82; PULSE 99; O2SAT 99; BMI 41.3
== END 2024-03-12 15:39 | disposition home or self-care (01) ==
PROVIDERS: PCP Internal Medicine; Visit Provider Internal Medicine
DX: Z00.00 Encounter for general adult medical examination without abnormal findings (principal); N94.3 Premenstrual tension syndrome; E66.813 Obesity, class 3; Z68.41 Body mass index [BMI] 40.0-44.9, adult; F41.0 Panic disorder [episodic paroxysmal anxiety]; R49.0 Dysphonia; E04.9 Nontoxic goiter, unspecified

== ENCOUNTER → 2024-03-12 15:10 | Outpatient (BNVA) | payer OTHER, SELFPAY | PROVIDERS: PCP Internal Medicine; Visit Provider Internal Medicine | DX: Z00.01 Encounter for general adult medical examination with abnormal findings (principal); N94.3 Premenstrual tension syndrome; F41.0 Panic disorder [episodic paroxysmal anxiety]; R49.0 Dysphonia; E66.01 Morbid (severe) obesity due to excess calories; E04.9 Nontoxic goiter, unspecified | CPT/HCPCS: 99212; 99395 ==

== ENCOUNTER 2024-03-26 15:49 | Outpatient (REF) | payer OTHER, SELFPAY ==
--- NOTE | ~2024-03-26 | US_ITS ---
EXAMINATION: US THYROID CLINICAL INFORMATION: Dysphonia. COMPARISON: None available. TECHNIQUE: Linear transducer grayscale and color Doppler examination with attention to the region of the thyroid. FINDINGS: SIZE: Measurements of the thyroid lobes and nodules are given in sagittal, anteroposterior and transverse dimensions respectively. Right Thyroid Lobe: 5.1 x 1.6 x 1.5 cm, volume 6.3 mL. Parenchyma: The gland echotexture is homogeneous. Thyroid vascularity is normal. Left Thyroid Lobe: 4.7 x 1.7 x 1.7 cm, volume 1.2 mL. Parenchyma: The gland echotexture is homogeneous. Thyroid vascularity is normal. Isthmus: 0.3 cm in maximum AP dimension. No focal thyroid nodule is seen. NODES: No lymphadenopathy is seen in the tissue surrounding the thyroid gland. US/US thyroid IMPRESSION: Unremarkable examination. ACR TI-RADS RECOMMENDATION REFERENCE: Ultrasound-guided fine-needle aspiration, followup ultrasound, no further follow up. * TR1 (0 point) and TR2 (2 points): No FNA or follow up. * TR3 (3 points): FNA if more than or equal to 2.5 cm in maximum dimension, followup ultrasound in 1, 3 and 5 years if 1.5 to 2.4 cm in maximum dimension. * TR4 (4-6 points): FNA if more than or equal to 1.5 cm in maximum dimension, followup ultrasound in 1, 2, 3 and 5 years if 1 to 1.4 cm in maximum dimension. * TR5 (more than or equal to 7 points): FNA if more than or equal to 1 cm in maximum dimension, followup ultrasound every year for 5 years if 0.5 to 0.9 cm in maximum dimension. * TR3, TR4 or TR5 nodules that are below the size threshold for followup receive no follow up. Electronically signed by: Cb Luciano MD 04/24/2024 01:07 PM KINA
== END 2024-03-26 15:50 | disposition home or self-care (01) ==
LOC: HO.US 15:49
PROVIDERS: PCP Internal Medicine; Visit Provider Internal Medicine
DX: R49.0 Dysphonia (principal); E04.9 Nontoxic goiter, unspecified
CPT/HCPCS: 76536

== ENCOUNTER 2024-06-22 12:08 | Outpatient (AMB) | payer OTHER, SELFPAY ==
[2024-06-22 12:12] VITALS: BP 124/82; PULSE 87; O2SAT 100; BMI 40.4
--- NOTE | 2024-06-22 12:12 | A.OFFPC_ITS ---
Vital Signs 06/22/24 12:12 Height 5 ft Weight 207 lb 2 oz BMI 40.4 BP 124/82 Blood Pressure Location Lt brachial Position Sitting Pulse 87 Pulse Source Pulse Oximeter Pulse Oximetry (%) 100 Oxygen Delivery Method Room Air Intake Visit Reasons: 3 months f/up Allergies fluoxetine Adverse Reaction (Intermediate, Verified 06/22/24 12:14) Abdominal Pain venlafaxine Adverse Reaction (Intermediate, Verified 06/22/24 12:23) Dizziness Medication List - Last Reconciled 06/22/24 by Alden Ramos MD albuterol sulfate 90 mcg/actuation 2 puffs inhalation Q4-6H PRN clonazepam (Klonopin) 0.5 mg PO BID PRN 10 days omeprazole 20 mg PO .qhs valacyclovir Take 1 daily 90 days venlafaxine 37.5 mg PO DAILY Tobacco use date assessed: 06/22/24 Dental Screening Dental Screen Date: 06/22/24 Did you have a dental visit in the last 12 months?: Yes Did you have a dental problem in the last 6 months where you did not have access to dental care?: No Was dental information given to patient?: Patient has dentist HPI 3 months f/up HPI Details - The patient is a 34-year-old female pr esenting for medication management related to Generalized Anxiety Disorder. - History of taking Clonazepam as needed , originally twice per day, once a day with occasional 2 times a day - Recently, patient's son had flu; tawana nt experienced mild flu symptoms but did not take Tamiflu due to concerns about side effects. Symptoms included fever for one day, light cough, and mucus production. - Reports experiencing dizziness with Ve nlafaxine even at the smallest dose, leading to discontinuation due to severe disorientation and inability to function at work. - Previous lab work in March indicated normal CBC, electrolytes, kidney, and liver functions. Problem List - Generalized Anxiety Disorder - Side Effects of Venlafaxine - Upper Respiratory Infection Patient Instructions - Continue taking clonazepam once a day may take 2 times a day if needed, 145 tablets sent for 90 days - Schedule and attend appointments every three months for medication management. - Hydrate well and continue monitoring w eight management efforts. - Consider rescheduling OBGYN appointmen t or seeking a new enterprise application analyst for further evaluation. Review of Systems - Psychological: Reports reduced anxiety on clonazepam but increased during illness; significant dizziness from Venlafaxine. - Respiratory: Denies ongoing cough; not es crackling in lungs resolved. - Gastrointestinal: Denies current use o f Omeprazole; reports gut issues post- clonazepam adjustment. - Genitourinary: Reports intermittent pi nching sensation in ovarian/colon area. 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 1. Little interest or pleasure in doing things: not at all 2. Feeling down, depressed, or hopeless: not at all 3. Trouble falling or staying asleep, or sleeping too much: not at all 4. Feeling tired or having little energy: several days 5. Poor appetite or overeating: not at all 6. Feeling bad about yourself - or that you are a failure or have let yourself or your family down: not at all 7. Trouble concentrating on things, such as reading the newspaper or watching television: several days 8. Moving or speaking so slowly that other people could have noticed. Or the opposite - being so fidgety or restless that you have been moving around a lot more than usual: not at all 9. Thoughts that you would be better off or of hurting yourself in some way: not at all Total score: 2 Depression Screening Interpretation: Negative Depression Screening Done: Yes 02277 - PHQ-9 Billing: Yes Source: Developed by Drs. Michael Solis, Franca Cronin, Price Orozco and colleagues, with an educational linda from [employer]. Thrive Questionnaire Date Thrive assessed: 06/22/24 I am a: Patient What is your living situation today?: I have a steady place to live Within the past 12 months, did the food you bought not last and you didn't have the money to get more?: Never true Within the past 12 months, did you worry whether your food would run out before you got money to buy more?: Never true Do you have trouble paying for medicines?: No Do you have trouble getting transportation to medical appointments?: No Do you have trouble paying your heating and electricity bill?: No Do you have trouble taking care of your child, family member or friend?: No Do you have trouble with day-to-day activities such as bathing, preparing meals, shopping, managing finances, etc.?: No Are you currently unemployed and looking for a job?: No Are you interested in more education?: No Please select the resources that you would like help with: None Currently or been in a relationship where the following occur: No concerns reported THRIVE Score: 0 AUDIT C Alcohol Use Questionnaire (AUDIT-C) 1. How often do you have a drink containing alcohol?: 2-3 times a week 2. How many drinks containing alcohol do you have on a typical day when you are drinking?: 3 or 4 3. How often do you have six or more drinks on one occasion?: Less than monthly Total Score: 5 Score Reviewed/Action Taken: Yes RAISSA-7 AMB Questionnaire RAISSA-7 Date RAISSA - 7 assessed: 06/22/24 Feeling nervous, anxious, or on edge: 1 = Several days Not being able to stop or control worryin = Not at all Worrying too much about different things: 1 = Several days Trouble relaxin = Several days Being so restless that it is hard to sit still: 0 = Not at all Becoming easily annoyed or irritable: 1 = Several days Feeling afraid as if something awful might happen: 0 = Not at all Total RAISSA-7 score (0-4 normal; 5-9 mild; 10-14 moderate; 15-21 severe): 4 Source: Developed by Drs. Michael Solis, Franca Cronin, Price Orozco and colleagues, with an educational linda from [employer]. RAISSA-7 Assessment Billing RAISSA-7 Assessment Tool: RAISSA-7 Assessment 10716 Physical exam (Primary Care) Vital Signs: Last Vital Signs Pulse 87 06/22/24 12:12 BP 124/82 06/22/24 12:12 Pulse Ox 100 06/22/24 12:12 Oxygen Delivery Method Room Air 06/22/24 12:12 BMI result Body Mass Index 40.4 Tobacco/Smoking Status: Tobacco use Status Tobacco use date assessed 06/22/24 06/22/24 12:15 Patient Tobacco Use Status Never used Tobacco 06/22/24 12:15 e-Cigarette/Vaping Use Never Used 06/22/24 12:15 PHQ-9: PHQ-9 Score PHQ-9: Total score 2 06/22/24 12:25 Depression Screening Interpretation: Negative Thrive Assessment: Date of Thrive Assessment Date Thrive assessed 06/22/24 06/22/24 12:15 Currently or been in a relationship where the following occur: No concerns reported Coding Level of Care Code Est Pt Level 3 (37176) Complex EM visit Add On G2211 Diagnoses Anxiety, generalized F41.1 Viral upper respiratory tract infection J06.9 URI type: unspecified viral URI Exposure to the flu Z20.828 Mixed obsessional thoughts and acts F42.2 Obsessive-compulsive disorder type: mixed obsessional thoughts and acts Morbid obesity due to excess calories E66.01 Additional Codes RAISSA-7 Assessment Billing - RAISAS-7 Assessment Tool: RAISSA-7 Assessment 28892 ([id number]) PHQ-9 - 84364 - PHQ-9 Billing: Yes ([id number]) Assessment & Plan Assessment & Plan (1) Anxiety, generalized: Code(s): F41.1 - Generalized anxiety disorder Category: Medical (2) Upper respiratory tract infection: Code(s): J06.9 - Acute upper respiratory infection, unspecified Category: Medical Qualifiers: URI type: unspecified viral URI Qualified Code(s): J06.9 - Acute upper respiratory infection, unspecified (3) Exposure to the flu: Code(s): Z20.828 - Contact with and (suspected) exposure to other viral communicable diseases Category: Medical (4) Obsessive compulsive disorder: Code(s): F42.9 - Obsessive-compulsive disorder, unspecified Category: Medical Qualifiers: Obsessive-compulsive disorder type: mixed obsessional thoughts and acts Qualified Code(s): F42.2 - Mixed obsessional thoughts and acts (5) Morbid obesity due to excess calories: Comment: If your BMI is between 25 and 29.9, you are overweight. If your BMI is 30 or greater, you are obese. ___ Being obese is a problem, because it increases the risks of many different health problems. It can also make it hard for you to move, breathe, and do other things that people who are at a healthy weight can do easily. Plus, being obese can be hard emotionally. ___ What are the health risks of being obese? Being obese increases a persons risk of developing many health problems. Here are just a few examples: __ Diabetes High blood pressure, High cholesterol, Heart disease (including heart attacks) Stroke, Sleep apnea (a disorder in which you stop breathing for short periods while asleep) Asthma, Cancer __ Does being obese shorten a persons life? Yes. Studies show that people who are obese younger than people who are a healthy weight. They also show that the risk of goes up the heavier a person is. The degree of increased risk depends on how long the person has been obese, and on what other medical problems he or she has. , Reduce your carbohydrate intake and choose carbs that are complex. Remember as a general rule of thumb, avoid highly processed foods. If it's white and soft, it's probably been stripped of its nutritional value. Change white bread to whole wheat bread, white rice to brown rice, white potatoes to sweet potatoes, white pasta to whole wheat pasta. Monitor portion sizes too: protein should be no bigger than your fist. Limit your red meat intake to only once or twice a wk. Eat more white meat but make sure to avoid creamy sauces etc. Broiling, baking or grilling is best. Increase dark, green leafy vegetables and fruits. Code(s): E66.01 - Morbid (severe) obesity due to excess calories Category: Medical Plan - The patient is a 34-year-old female presenting for medication management related to Generalized Anxiety Disorder. - History of taking Clonazepam as needed, originally twice per day, once a day with occasional 2 times a day - Recently, patient's son had flu; patient experienced mild flu symptoms but did not take Tamiflu due to concerns about side effects. Symptoms included fever for one day, light cough, and mucus production. - Reports experiencing dizziness with Venlafaxine even at the smallest dose, leading to discontinuation due to severe disorientation and inability to function at work. - Previous lab work in March indicated normal CBC, electrolytes, kidney, and liver functions. Problem List - Generalized Anxiety Disorder - Side Effects of Venlafaxine - Upper Respiratory Infection Patient Instructions - Continue taking clonazepam once a day may take 2 times a day if needed, 145 tablets sent for 90 days - Schedule and attend appointments every three months for medication management. - Hydrate well and continue monitoring weight management efforts. - Consider rescheduling OBGYN appointment or seeking a new enterprise application analyst for further evaluation. Orders: Referrals SHANK SCOURER Referral Z01.419 - Encounter for gynecological examination (general) (routine) without abnormal findings Medications: Changed From clonazepam (Klonopin) 0.5 mg PO BID 10 days PRN 10 tabs 0RF anxiety To clonazepam (Klonopin) 0.5 mg PO BID 90 days PRN 145 tabs 0RF anxiety Discontinued omeprazole Take on empty stomach if possible Discontinued Reason: Doctor's Order 20 mg PO .qhs 90 caps 0RF venlafaxine Discontinued Reason: Doctor's Order 37.5 mg PO DAILY 90 tabs 0RF
== END 2024-06-22 12:34 | disposition home or self-care (01) ==
PROVIDERS: PCP Internal Medicine; Visit Provider Internal Medicine
DX: F41.1 Generalized anxiety disorder (principal); J06.9 Acute upper respiratory infection, unspecified; Z20.828 Contact with and (suspected) exposure to other viral communicable diseases; F42.2 Mixed obsessional thoughts and acts; E66.01 Morbid (severe) obesity due to excess calories; Z68.41 Body mass index [BMI] 40.0-44.9, adult

== ENCOUNTER → 2024-06-22 12:08 | Outpatient (BNVA) | payer OTHER, SELFPAY | PROVIDERS: PCP Internal Medicine; Visit Provider Internal Medicine | DX: F41.1 Generalized anxiety disorder (principal); J06.9 Acute upper respiratory infection, unspecified; Z20.828 Contact with and (suspected) exposure to other viral communicable diseases; F42.2 Mixed obsessional thoughts and acts; E66.01 Morbid (severe) obesity due to excess calories | CPT/HCPCS: 96127; 99212 ==

== ENCOUNTER 2024-09-08 09:54 | Outpatient (AMB) | payer OTHER, SELFPAY ==
[2024-09-08 09:56] VITALS: BP 122/80; PULSE 82; O2SAT 99; BMI 39.6
--- NOTE | 2024-09-08 09:56 | MHC.PC.OV ---
Vital Signs 09/08/24 09:56 Height 5 ft Weight 203 lb BMI 39.6 BP 122/80 Blood Pressure Location Rt brachial Position Sitting Pulse 82 Pulse Source Pulse Oximeter Pulse Oximetry (%) 99 Oxygen Delivery Method Room Air Intake Visit Reasons: 11 weeks f/up Allergies fluoxetine Adverse Reaction (Intermediate, Verified 09/08/24 09:56) Abdominal Pain venlafaxine Adverse Reaction (Intermediate, Verified 09/08/24 09:56) Dizziness Medication List - Last Reconciled 09/08/24 by Alden Ramos MD albuterol sulfate 90 mcg/actuation 2 puffs inhalation Q4-6H PRN clonazepam (Klonopin) 0.5 mg PO BID PRN 90 days valacyclovir Take 1 daily 90 days Tobacco use date assessed: 09/08/24 Dental Screening Dental Screen Date: 09/08/24 Did you have a dental visit in the last 12 months?: Yes Did you have a dental problem in the last 6 months where you did not have access to dental care?: No Was dental information given to patient?: Patient has dentist HPI 11 weeks f/up HPI Details Regular follow-up appointment for medication refill - The patient is a 34-year-old female presenting with herpes labialis. Cold sores occur every three months, especially in the nostril region, associated with tingling and pain around the eye and nose. She is to start taking Valacyclovir 500 mg daily - The patient reports anxiety-related chest pain with increased heart rate during stress. Taking clonazepam 0.5 mg as needed, 45 tablets sent for next three-month Problem List - Herpes labialis (cold sores) with recurrent episodes - Anxiety-induced chest pain Patient Instructions - Take valacyclovir as soon as initial symptoms of cold sores arise. - Consider daily suppressive therapy for frequent herpes labialis outbreaks, as discussed. - Monitor stress levels and practice relaxation techniques to manage anxiety symptoms. - Plan to return for follow-up in three months. Review of Systems - General: No fever no chills - Neurological: No headaches no dizziness - Ear nose throat: No sore throat no hearing difficulty no ear pain - Cardiovascular: No syncope, no chest pain, no palpitations - Gastrointestinal: No nausea vomiting or diarrhea - Endocrine: No polyuria polydipsia no heat intolerance - Genitourinary: No dysuria , no blood in urine Physical Exam General: No acute distress HEENT: Normocephalic atraumatic Neck: Supple Respiratory system: Able to talk in full sentences, no audible wheeze Cardiovascular: S1-S2 regular in rate and rhythm, patient reports heart rate feels elevated due to stress Gastrointestinal: No pain Extremities: No new findings 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 92056 - PHQ-9 Billing: Patient declined-do not bill Source: Developed by Drs. Michael Solis, Franca Cronin, Price Orozco and colleagues, with an educational linda from [employer]. Thrive Questionnaire Date Thrive assessed: 09/08/24 I am a: Patient What is your living situation today?: I have a steady place to live Within the past 12 months, did the food you bought not last and you didn't have the money to get more?: Never true Within the past 12 months, did you worry whether your food would run out before you got money to buy more?: Never true Do you have trouble paying for medicines?: No Do you have trouble getting transportation to medical appointments?: No Do you have trouble paying your heating and electricity bill?: No Do you have trouble taking care of your child, family member or friend?: No Do you have trouble with day-to-day activities such as bathing, preparing meals, shopping, managing finances, etc.?: No Are you currently unemployed and looking for a job?: No Are you interested in more education?: No Please select the resources that you would like help with: None Currently or been in a relationship where the following occur: No concerns reported THRIVE Score: 0 AUDIT C Alcohol Use Questionnaire (AUDIT-C) 1. How often do you have a drink containing alcohol?: 2-3 times a week 2. How many drinks containing alcohol do you have on a typical day when you are drinking?: 3 or 4 3. How often do you have six or more drinks on one occasion?: Less than monthly Total Score: 5 Score Reviewed/Action Taken: Yes RAISSA-7 AMB Questionnaire RAISSA-7 Date RAISSA - 7 assessed: 09/08/24 Feeling nervous, anxious, or on edge: 0 = Not at all Not being able to stop or control worryin = Not at all Worrying too much about different things: 0 = Not at all Trouble relaxin = Not at all Being so restless that it is hard to sit still: 0 = Not at all Becoming easily annoyed or irritable: 0 = Not at all Feeling afraid as if something awful might happen: 0 = Not at all Total RAISSA-7 score (0-4 normal; 5-9 mild; 10-14 moderate; 15-21 severe): 0 Source: Developed by Drs. Michael Solis, Franca Cronin, Price Orozco and colleagues, with an educational linda from [employer] [facility]. RAISSA-7 Assessment Billing RAISSA-7 Assessment Tool: RAISSA-7 Assessment 34356 Physical exam (Primary Care) Vital Signs: Last Vital Signs Pulse 82 09/08/24 09:56 BP 122/80 09/08/24 09:56 Pulse Ox 99 09/08/24 09:56 Oxygen Delivery Method Room Air 09/08/24 09:56 BMI result Body Mass Index 39.6 Tobacco/Smoking Status: Tobacco use Status Tobacco use date assessed 09/08/24 09/08/24 09:58 Patient Tobacco Use Status Never used Tobacco 09/08/24 09:58 e-Cigarette/Vaping Use Never Used 09/08/24 09:58 Thrive Assessment: Date of Thrive Assessment Date Thrive assessed 09/08/24 09/08/24 09:58 Currently or been in a relationship where the following occur: No concerns reported Coding Level of Care Code Est Pt Level 3 (61502) Complex EM visit Add On G2211 Diagnoses Anxiety, generalized F41.1 Mixed obsessional thoughts and acts F42.2 Obsessive-compulsive disorder type: mixed obsessional thoughts and acts Recurrent herpes labialis B00.1 Additional Codes RAISSA-7 Assessment Billing - RAISSA-7 Assessment Tool: RAISSA-7 Assessment 36218 ([id number]) Assessment & Plan Assessment & Plan (1) Anxiety, generalized: Code(s): F41.1 - Generalized anxiety disorder Category: Medical (2) Obsessive compulsive disorder: Code(s): F42.9 - Obsessive-compulsive disorder, unspecified Category: Medical Qualifiers: Obsessive-compulsive disorder type: mixed obsessional thoughts and acts Qualified Code(s): F42.2 - Mixed obsessional thoughts and acts (3) Recurrent herpes labialis: Code(s): B00.1 - Herpesviral vesicular dermatitis Category: Medical Plan Regular follow-up appointment for medication refill - The patient is a 34-year-old female presenting with herpes labialis. Cold sores occur every three months, especially in the nostril region, associated with tingling and pain around the eye and nose. She is to start taking Valacyclovir 500 mg daily - The patient reports anxiety-related chest pain with increased heart rate during stress. She also suffers from OCD Taking clonazepam 0.5 mg as needed, 45 tablets sent for next three-month Problem List - Herpes labialis (cold sores) with recurrent episodes - Anxiety-induced chest pain - OCD Patient Instructions - Take valacyclovir as soon as initial symptoms of cold sores arise. - Consider daily suppressive therapy for frequent herpes labialis outbreaks, as discussed. - Monitor stress levels and practice relaxation techniques to manage anxiety symptoms. - Plan to return for follow-up in three months. Medications: Refilled clonazepam (Klonopin) 0.5 mg PO BID 90 days PRN 145 tabs 0RF anxiety
== END 2024-09-08 10:15 | disposition home or self-care (01) ==
LOC: HO.HMCC 09:55
PROVIDERS: PCP Internal Medicine; Visit Provider Internal Medicine
DX: F41.1 Generalized anxiety disorder (principal); F42.2 Mixed obsessional thoughts and acts; B00.1 Herpesviral vesicular dermatitis

== ENCOUNTER → 2024-09-08 09:54 | Outpatient (BNVA) | payer OTHER, SELFPAY | PROVIDERS: PCP Internal Medicine; Visit Provider Internal Medicine | DX: B00.1 Herpesviral vesicular dermatitis (principal); F41.1 Generalized anxiety disorder; F42.2 Mixed obsessional thoughts and acts; R07.89 Other chest pain; Z79.899 Other long term (current) drug therapy | CPT/HCPCS: 96127; 99212 ==

== ENCOUNTER 2024-11-24 09:54 | Outpatient (AMB) | payer OTHER, SELFPAY ==
--- NOTE | 2024-11-24 09:58 | MHC.PC.OV ---
Vital Signs 11/24/24 09:59 Height 5 ft Weight 205 lb BMI 40.0 BP 114/80 Blood Pressure Location Rt brachial Position Sitting Respiration 16 Pulse 82 Pulse Source Pulse Oximeter Temp 98.8 F Temp Source Oral Pulse Oximetry (%) 98 Oxygen Delivery Method Room Air Intake Visit Reasons: 11 week follow up Allergies fluoxetine Adverse Reaction (Intermediate, Verified 11/24/24 10:02) Abdominal Pain venlafaxine Adverse Reaction (Intermediate, Verified 11/24/24 10:02) Dizziness Medication List - Last Reconciled 11/24/24 by Alden Ramos MD albuterol sulfate 90 mcg/actuation 2 puffs inhalation Q4-6H PRN clonazepam (Klonopin) 0.5 mg PO BID PRN 30 days valacyclovir Take 1 daily 90 days Tobacco use date assessed: 11/24/24 Dental Screening Dental Screen Date: 11/24/24 Did you have a dental visit in the last 12 months?: Yes Did you have a dental problem in the last 6 months where you did not have access to dental care?: Yes Was dental information given to patient?: Patient has dentist HPI 11 week follow up HPI Details History - The patient is a 34-year-old female presenting with a regular follow-up appointment. - Anxiety: The patient reports that her anxiety is stable and managed with clonazepam taken twice daily. - Cold sores: The patient uses valacyclovir as needed when she feels a cold sore developing. - Lifestyle: The patient is actively working on her fitness and weight loss, and she is trying to reduce her cortisol levels. Problem List - Anxiety - Cold sore Patient Instructions - Continue taking clonazepam as prescribed for anxiety management. - Use valacyclovir as needed for cold sore prevention. - Maintain current fitness routine and continue efforts to reduce cortisol levels. Review of Systems - General: No fever no chills - Neurological: No headaches no dizziness - Ear nose throat: No sore throat no hearing difficulty no ear pain - Cardiovascular: No syncope, no chest pain, no palpitations - Gastrointestinal: No nausea vomiting or diarrhea - Endocrine: No polyuria polydipsia no heat intolerance - Genitourinary: No dysuria , no blood in urine Physical Exam - General: No acute distress - HEENT: No acute findings - Neck: Supple - Respiratory system: Able to talk in full sentences, no audible wheeze - Cardiovascular: S1-S2 regular in rate and rhythm - Gastrointestinal: No pain - Extremities: No new findings - BOX CAR BRACER: Alert awake oriented x3 motor sensory intact - Skin: Normal turgor PFSH Surgical History Hx of left knee surgery Family History Father Hypertension Diabetes COPD (chronic obstructive pulmonary disease) Mother No problems noted. 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 Cognitive needs: No Hearing needs: No Vision needs: No Questionnaire Thrive Questionnaire Date Thrive assessed: 06/13/24 I am a: Patient What is your living situation today?: I have a steady place to live Within the past 12 months, did the food you bought not last and you didn't have the money to get more?: Never true Within the past 12 months, did you worry whether your food would run out before you got money to buy more?: Never true Do you have trouble paying for medicines?: No Do you have trouble getting transportation to medical appointments?: No Do you have trouble paying your heating and electricity bill?: No Do you have trouble taking care of your child, family member or friend?: No Do you have trouble with day-to-day activities such as bathing, preparing meals, shopping, managing finances, etc.?: No Are you currently unemployed and looking for a job?: No Are you interested in more education?: No Please select the resources that you would like help with: None Currently or been in a relationship where the following occur: No concerns reported THRIVE Score: 0 RAISSA-7 AMB Questionnaire RAISSA-7 Date RAISSA - 7 assessed: 09/08/24 Source: Developed by Drs. Michael Solis, Franca Cronin, Price Orozco and colleagues, with an educational linda from [employer]. Physical exam (Primary Care) Vital Signs: Last Vital Signs Temp 98.8 F 11/24/24 09:59 Pulse 82 11/24/24 09:59 Resp 16 11/24/24 09:59 BP 114/80 11/24/24 09:59 Pulse Ox 98 11/24/24 09:59 Oxygen Delivery Method Room Air 11/24/24 09:59 BMI result Body Mass Index 40.0 Tobacco/Smoking Status: Tobacco use Status Tobacco use date assessed 11/24/24 11/24/24 10:02 Patient Tobacco Use Status Never used Tobacco 11/24/24 10:02 e-Cigarette/Vaping Use Never Used 11/24/24 10:02 Thrive Assessment: Date of Thrive Assessment Date Thrive assessed 06/13/24 11/24/24 10:02 Currently or been in a relationship where the following occur: No concerns reported Coding Level of Care Code Est Pt Level 3 (09146) Complex EM visit Add On G2211 Diagnoses Anxiety, generalized F41.1 Mixed obsessional thoughts and acts F42.2 Obsessive-compulsive disorder type: mixed obsessional thoughts and acts 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 - Anxiety: The patient reports that her anxiety is stable and managed with clonazepam taken twice daily. - Cold sores: The patient uses valacyclovir as needed when she feels a cold sore developing. - Lifestyle: The patient is actively working on her fitness and weight loss, and she is trying to reduce her cortisol levels. Problem List - Anxiety - Cold sore Patient Instructions - Continue taking clonazepam as prescribed for anxiety management. - Use valacyclovir as needed for cold sore prevention. - Maintain current fitness routine and continue efforts to reduce cortisol levels. Medications: Refilled clonazepam (Klonopin) 0.5 mg PO BID PRN 30 tabs 2RF anxiety 30 days
[2024-11-24 09:59] VITALS: BP 114/80; PULSE 82; RESP 16; TEMP 37.1; O2SAT 98; BMI 40.0
== END 2024-11-24 12:08 | disposition home or self-care (01) ==
LOC: HO.HMCC 09:55
PROVIDERS: PCP Internal Medicine; Visit Provider Internal Medicine
DX: F41.1 Generalized anxiety disorder (principal); F42.2 Mixed obsessional thoughts and acts; B00.1 Herpesviral vesicular dermatitis

== ENCOUNTER → 2024-11-24 09:54 | Outpatient (BNVA) | payer OTHER, SELFPAY | PROVIDERS: PCP Internal Medicine; Visit Provider Internal Medicine | DX: F41.1 Generalized anxiety disorder (principal); F42.2 Mixed obsessional thoughts and acts; B00.1 Herpesviral vesicular dermatitis | CPT/HCPCS: 99212 ==

== ENCOUNTER 2025-03-03 09:01 | Outpatient (REF) | payer OTHER, SELFPAY ==
[2025-03-03 16:17] LABS: Chlamydia pneumoniae PCR Not Detected (Not Detect.); Coronavirus 229E PCR Not Detected (Not Detect.); Coronavirus HKU1 PCR Not Detected (Not Detect.); Coronavirus NL63 PCR Not Detected (Not Detect.); Coronavirus OC43 PCR Not Detected (Not Detect.); RSV PCR Not Detected (Not Detect.); Rhino/Enterovirus PCR Not Detected (Not Detect.)
[2025-03-03 16:32] LABS: Influenza A H1 PCR Not Detected (Not Detect.); Influenza A H1-2009 PCR Not Detected (Not Detect.); Influenza A H3 PCR Not Detected (Not Detect.); SARS-CoV-2 PCR Not Detected (Not Detect.)
== END 2025-03-03 09:02 | disposition home or self-care (01) ==
LOC: HO.LAB 09:01
PROVIDERS: PCP Internal Medicine; Visit Provider Nurse Practitioner Family
DX: J06.9 Acute upper respiratory infection, unspecified (principal)
CPT/HCPCS: 87633; 99212

== ENCOUNTER 2025-03-03 09:01 | Outpatient (AMB) | payer OTHER, SELFPAY ==
[2025-03-03 09:08] VITALS: BP 120/84; PULSE 90; TEMP 37.1; O2SAT 99; BMI 40.6
--- NOTE | 2025-03-03 09:08 | AM.OFFWIN_ITS ---
Intake Vital Signs 03/03/25 09:08 Height 5 ft Weight 208 lb BMI 40.6 BP 120/84 Blood Pressure Location Lt brachial Position Sitting Pulse 90 Pulse Source Pulse Oximeter Temp 98.7 F Temp Source Oral Pulse Oximetry (%) 99 Oxygen Delivery Method Room Air Intake Visit Reasons: ep cough chest congestion Intake Note: pt presents with chest congestion with occasional productive cough, sinus congestion for 3 days Patient Tobacco Use Status: Never used Tobacco Allergies fluoxetine Adverse Reaction (Intermediate, Verified 03/03/25 09:11) Abdominal Pain venlafaxine Adverse Reaction (Intermediate, Verified 03/03/25 09:11) Dizziness Medication List - Last Reconciled 03/03/25 by Lia Ko NP albuterol sulfate 90 mcg/actuation 2 puffs inhalation Q4-6H PRN azithromycin 500 mg PO DAILY 3 days benzonatate 200 mg (2 x 100 mg) PO BID clonazepam (Klonopin) 0.5 mg PO BID PRN 30 days dextromethorphan polistirex ER (Delsym 12 hour) 10 mL PO Q12H Do you need a note to return to daycare/school/sports/work: Yes HPI HPI Comments History of Present Illness Details 35 y/o Female patient who presents to [facility] walk [facility] with c/o URI symptoms x 3 days. Pt c/o Cough, SOB, Wheezing, Body aches, nausea but no vomiting. She has not taken any OTC pain medications. Denies Fevers, chills or diarrhea. Reports that her young children are home with similar symptoms. [facility] Medical History (Updated 03/03/25 @ 09:35 by Lia Ko NP) Acute respiratory disease Surgical History Hx of left knee surgery Family History Father Hypertension Diabetes COPD (chronic obstructive pulmonary disease) Mother No problems noted. 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 Cognitive needs: No Hearing needs: No Vision needs: No Review of Systems Const All systems reviewed & are unremarkable except as noted in HPI and below Physical Exam Vital Signs: Last Vital Signs Temp 98.7 F 03/03/25 09:08 Pulse 90 03/03/25 09:08 BP 120/84 03/03/25 09:08 Pulse Ox 99 03/03/25 09:08 Oxygen Delivery Method Room Air 03/03/25 09:08 BMI result Body Mass Index 40.6 Const General: no acute distress Nutritional Appearance: obese Orientation/consciousness: patient oriented x3 HEENT Head: Yes normocephalic Ears: external ears normal and TM abnormal obstructed by cerumen bilateral General nose exam: Normal nasal mucous membranes and turbinates present Face and sinus: Yes sinuses nontender Mouth: moist mucous membranes Throat: Yes uvula midline Resp Effort & Inspection: normal respiratory effort, no audible wheezes and Actively coughing Auscultation: clear to auscultation bilaterally, no crackles, no rales, no rhonchi and no wheezes Cardio Heart sounds: S1 normal heart sound present and S2 normal heart sound present Neuro General: patient oriented x3, gait normal and moves all extremities Psych Speech and movement: Normal speech and movement present Assessment & Plan Assessment & Plan (1) Acute respiratory disease: Code(s): J06.9 - Acute upper respiratory infection, unspecified Plan: Ordered Resp Path to r/o Viral infection. Ordered Z-pack on hold pending Viral results - if negative she may take it. Acetaminophen for pain relief Rest and hydrate well with warm fluids. Orders: Orders Resp Pathogen Panel - [facility] [place] Today J06.9 - Acute upper respiratory infection, unspecified Medications: New dextromethorphan polistirex ER (Delsym 12 hour) 10 mL PO Q12H 89 mL 0RF cough J06.9 - Acute upper respiratory infection, unspecified azithromycin 500 mg PO DAILY 3 tabs 0RF 3 days J06.9 - Acute upper respiratory infection, unspecified benzonatate 200 mg (2 x 100 mg) PO BID 60 caps 0RF R05.9 - Cough, unspecified Discontinued valacyclovir Discontinued Reason: Patient Completed Course Take 1 daily 90 days 90 tabs 1RF Cold sore Coding Level of Care Code Est Pt Level 4 (90801) Diagnoses Acute respiratory disease J06.9 Time Spent (min) 20
== END 2025-03-03 09:49 | disposition home or self-care (01) ==
PROVIDERS: PCP Internal Medicine; Visit Provider Nurse Practitioner Family
DX: J06.9 Acute upper respiratory infection, unspecified (principal)

== ENCOUNTER 2025-03-15 15:23 | Outpatient (AMB) | payer OTHER, SELFPAY ==
[2025-03-15 15:25] VITALS: BP 122/80; PULSE 88; O2SAT 98; BMI 41.2
--- NOTE | 2025-03-15 15:25 | A.OFFPC_ITS ---
Vital Signs 03/15/25 15:25 Height 5 ft Weight 211 lb BMI 41.2 BP 122/80 Blood Pressure Location Lt brachial Position Sitting Pulse 88 Pulse Source Pulse Oximeter Pulse Oximetry (%) 98 Oxygen Delivery Method Room Air Intake Visit Reasons: Annual PE Strategic Planning Analyst Required: No Accompanied by: Self / Same As Patient Allergies fluoxetine Adverse Reaction (Intermediate, Verified 03/15/25 15:25) Abdominal Pain venlafaxine Adverse Reaction (Intermediate, Verified 03/15/25 15:25) Dizziness Medication List - Last Reconciled 03/15/25 by Alden Ramos MD albuterol sulfate 90 mcg/actuation 2 puffs inhalation Q4-6H PRN clonazepam (Klonopin) 0.5 mg PO BID PRN 30 days dextromethorphan polistirex ER (Delsym 12 hour) 10 mL PO Q12H Tobacco use date assessed: 11/24/24 Dental Screening Dental Screen Date: 11/24/24 HPI Annual PE HPI Details History of Present Illness The patient is a 35-year-old female presenting for an annual physical examination. Obsessive-compulsive disorder: - Current diagnosis with ongoing managem ent Severe anxiety: - Currently managed with Clonazepam, 0.5 mg, up to twice daily - Symptoms aggravated by stress and busy schedule, especially with seasonal changes Parainfluenza infection: - Occurred approximately a week and a thompson lf ago - Symptoms included stuffy nose and coug h, no fever [recovered] Athlete?s foot: - Persistent issue for over a year with lack of resolution despite treatment attempts such as antifungal sprays and lotions - Located on the big toe with symptoms t hat have persisted Medical History: - Morbid obesity - Obsessive-compulsive disorder - Severe anxiety - Panic disorder - Vitamin D deficiency - Environmental allergies - Parainfluenza infection - Athlete?s foot Social History: - Reports prioritizing children's care o [place] personal healthcare needs - Describes a busy schedule balancing fa justina life and work commitments - Reports stress influenced by a busy [employer] festyle and family responsibilities, including managing extracurricular activities of children Health Maintenance - Blood work (CBC and metabolic profile) last performed in March of the previous year, both within normal limits - Discussed need for regular gynecologic al visits but has not completed a recent one due to scheduling conflicts, number provided for OBGYN so patient can book an appointment - Tetanus vaccine administered in 2016 w ith advice to update in the following year or sooner if injured - Discussed not proceeding with flu vacc ine due to recent recovery from influenza-like illness 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 in addition to family responsibilities Patient Instructions - Schedule blood tests, preferably while fasting - Monitor and manage anxiety symptoms, e specially during times of increased stress - Consider scheduling and attending a gy necological examination - Maintain awareness of tetanus vaccinat ion schedule, especially with exposure to potential injuries - Continue with prescribed medication as directed for anxiety management - Observe any changes in athlete?s foot and consider a visit to a gunsmith apprentice if symptoms persist Follow-up 3 and half month for medication refill and 1 year physical exam Review of Systems - General: No fever no chills - Neurological: No headaches no dizzin ess - Ear nose throat: No sore throat no hearing difficulty no ear pain - Cardiovascular: No syncope, no chest pain, no palpitations - Gastrointestinal: No nausea vomiting or diarrhea - Endocrine: No polyuria polydipsia no heat intolerance - Genitourinary: No dysuria - Skin: No new complaints Physical Exam General: Cooperative, healthy appearing, comfortable, no acute distress Orientation: Patient oriented x3 Limitations: None Head: Normal to inspection Ears: Within normal limit visually Nose: Normal external nose present Face and sinus: Normal facial exam Eyes: Appearance normal, extraocular movement intact pupils reactive Neck: Normal visual inspection and supple Respiratory: Normal respiratory effort and able to speak in complete sentences. Clear to auscultation, no stridor Cardiovascular: S1 and S2 RRR Breast exam benign GI: Normal to inspection. Soft to palpation and nontender Skin: Turgor normal, no acute findings Neuro: Patient oriented x3, motor sensory intact, balance intact, tandem pass Extremities: Normal to inspection, chronic right ankle discomfort off and on secondary to past injury . [facility] Medical History Acute respiratory disease Surgical History Hx of left knee surgery Family History Father Hypertension Diabetes COPD (chronic obstructive pulmonary disease) Mother No problems noted. 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 Cognitive needs: No Hearing needs: No Vision needs: No Questionnaire Thrive Questionnaire Date Thrive assessed: 06/13/24 I am a: Patient What is your living situation today?: I have a steady place to live Within the past 12 months, did the food you bought not last and you didn't have the money to get more?: Never true Within the past 12 months, did you worry whether your food would run out before you got money to buy more?: Never true Do you have trouble paying for medicines?: No Do you have trouble getting transportation to medical appointments?: No Do you have trouble paying your heating and electricity bill?: No Do you have trouble taking care of your child, family member or friend?: No Do you have trouble with day-to-day activities such as bathing, preparing meals, shopping, managing finances, etc.?: No Are you currently unemployed and looking for a job?: No Are you interested in more education?: No Please select the resources that you would like help with: None Currently or been in a relationship where the following occur: No concerns reported THRIVE Score: 0 RAISSA-7 AMB Questionnaire RAISSA-7 Date RAISSA - 7 assessed: 09/08/24 Source: Developed by Drs. Michael Solis, Franca Cronin, Price Orozco and colleagues, with an educational linda from [employer]. Physical exam (Primary Care) Vital Signs: Last Vital Signs Pulse 88 03/15/25 15:25 BP 122/80 03/15/25 15:25 Pulse Ox 98 03/15/25 15:25 Oxygen Delivery Method Room Air 03/15/25 15:25 BMI result Body Mass Index 41.2 Tobacco/Smoking Status: Tobacco use Status Tobacco use date assessed 11/24/24 03/15/25 15:28 Patient Tobacco Use Status Never used Tobacco 03/15/25 15:28 e-Cigarette/Vaping Use Never Used 03/15/25 15:28 Thrive Assessment: Date of Thrive Assessment Date Thrive assessed 06/13/24 03/15/25 15:28 Currently or been in a relationship where the following occur: No concerns reported Coding Level of Care Code Est Pt Level 3 (66532) Est Pt Prev Care 18-39y(55048) Diagnoses Encounter for general adult medical examination with abnormal findings Z00.01 Class 3 severe obesity due to excess calories without serious comorbidity with body mass index (BMI) of 40.0 to 44.9 in adult E66.813; Z68.41 Obesity classification: adult class 3 (BMI >= 40) Serious obesity comorbidity presence: without serious comorbidity Body mass index: BMI 40.0-44.9 Severe anxiety with panic F41.0 Mixed obsessional thoughts and acts F42.2 Obsessive-compulsive disorder type: mixed obsessional thoughts and acts Assessment & Plan Assessment & Plan (1) Encounter for general adult medical examination with abnormal findings: Code(s): Z00.01 - Encounter for general adult medical examination with abnormal findings Category: Medical (2) Obesity due to excess calories: Code(s): E66.09 - Other obesity due to excess calories Category: Medical Qualifiers: Obesity classification: adult class 3 (BMI >= 40) Serious obesity comorbidity presence: without serious comorbidity Body mass index: BMI 40.0- 44.9 Qualified Code(s): E66.813 - Obesity, class 3; Z68.41 - Body mass index [BMI] 40.0-44.9, adult (3) Severe anxiety with panic: Code(s): F41.0 - Panic disorder [episodic paroxysmal anxiety] Category: Medical (4) Obsessive compulsive disorder: Code(s): F42.9 - Obsessive-compulsive disorder, unspecified Category: Medical Qualifiers: Obsessive-compulsive disorder type: mixed obsessional thoughts and acts Qualified Code(s): F42.2 - Mixed obsessional thoughts and acts Plan Obsessive-compulsive disorder: - Current diagnosis with ongoing management Severe anxiety: - Currently managed with Clonazepam, 0.5 mg, up to twice daily - Symptoms aggravated by stress and busy schedule, especially with seasonal changes Parainfluenza infection: - Occurred approximately a week and a half ago - Symptoms included stuffy nose and cough, no fever [recovered] Athlete?s foot: - Persistent issue for over a year with lack of resolution despite treatment attempts such as antifungal sprays and lotions - Located on the big toe with symptoms that have persisted Medical History: - Morbid obesity - Obsessive-compulsive disorder - Severe anxiety - Panic disorder - Vitamin D deficiency - Environmental allergies - Parainfluenza infection - Athlete?s foot Social History: - Reports prioritizing children's care over personal healthcare needs - Describes a busy schedule balancing family life and work commitments - Reports stress influenced by a busy lifestyle and family responsibilities, including managing extracurricular activities of children Health Maintenance - Blood work (CBC and metabolic profile) last performed in March of the previous year, both within normal limits - Discussed need for regular gynecological visits but has not completed a recent one due to scheduling conflicts, number provided for OBGYN so patient can book an appointment - Tetanus vaccine administered in 2015 with advice to update in the following year or sooner if injured - Discussed not proceeding with flu vaccine due to recent recovery from influenza-like illness 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 in addition to family responsibilities Patient Instructions - Schedule blood tests, preferably while fasting - Monitor and manage anxiety symptoms, especially during times of increased stress - Consider scheduling and attending a gynecological examination - Maintain awareness of tetanus vaccination schedule, especially with exposure to potential injuries - Continue with prescribed medication as directed for anxiety management - Observe any changes in athlete?s foot and consider a visit to a gunsmith apprentice if symptoms persist Follow-up 3 and half month for medication refill and 1 year physical exam Orders: Orders Comprehensive [place]. Panel Fast Today E66.09 - Other obesity due to excess calories, F41.0 - Panic disorder [episodic paroxysmal anxiety], F42.2 - Mixed obsessional thoughts and acts, Z00.01 - Encounter for general adult medical examination with abnormal findings TSH reflex Free T4 Today E66.09 - Other obesity due to excess calories, F41.0 - Panic disorder [episodic paroxysmal anxiety], F42.2 - Mixed obsessional thoughts and acts, Z00.01 - Encounter for general adult medical examination with abnormal findings Complete Blood Count Auto Diff Today E66.09 - Other obesity due to excess calories, F41.0 - Panic disorder [episodic paroxysmal anxiety], F42.2 - Mixed obsessional thoughts and acts, Z00.01 - Encounter for general adult medical examination with abnormal findings Lipid Panel Today E66.09 - Other obesity due to excess calories, F41.0 - Panic disorder [episodic paroxysmal anxiety], F42.2 - Mixed obsessional thoughts and acts, Z00.01 - Encounter for general adult medical examination with abnormal findings Medications: Refilled clonazepam (Klonopin) 0.5 mg PO BID PRN 30 tabs 2RF anxiety 30 days
== END 2025-03-15 15:52 | disposition home or self-care (01) ==
LOC: HO.HMCC 15:24
PROVIDERS: PCP Internal Medicine; Visit Provider Internal Medicine
DX: Z00.01 Encounter for general adult medical examination with abnormal findings (principal); E66.813 Obesity, class 3; Z68.41 Body mass index [BMI] 40.0-44.9, adult; F41.0 Panic disorder [episodic paroxysmal anxiety]; F42.2 Mixed obsessional thoughts and acts

== ENCOUNTER → 2025-03-15 15:23 | Outpatient (BNVA) | payer OTHER, SELFPAY | PROVIDERS: PCP Internal Medicine; Visit Provider Internal Medicine | DX: Z00.01 Encounter for general adult medical examination with abnormal findings (principal); F42.9 Obsessive-compulsive disorder, unspecified; F41.9 Anxiety disorder, unspecified; B35.3 Tinea pedis; F41.0 Panic disorder [episodic paroxysmal anxiety]; F42.2 Mixed obsessional thoughts and acts; E66.813 Obesity, class 3; Z68.41 Body mass index [BMI] 40.0-44.9, adult | CPT/HCPCS: 99395 ==

== ENCOUNTER 2025-04-07 08:59 | Outpatient (AMB) | payer OTHER, SELFPAY ==
[2025-04-07 09:01] VITALS: BP 130/82; PULSE 86; TEMP 36.8; O2SAT 99; BMI 41.0
--- NOTE | 2025-04-07 09:01 | AM.OFFWIN_ITS ---
Intake Vital Signs 04/07/25 09:01 Height 5 ft Weight 210 lb BMI 41.0 BP 130/82 Blood Pressure Location Lt brachial Position Sitting Pulse 86 Pulse Source Pulse Oximeter Temp 98.3 F Temp Source Oral Pulse Oximetry (%) 99 Oxygen Delivery Method Room Air Intake Visit Reasons: EP ear/neck pain Intake Note: pt presents with right ear pain into right neck for 4 days- pt notes occasional flares of wisdom teeth Patient Tobacco Use Status: Never used Tobacco Allergies fluoxetine Adverse Reaction (Intermediate, Verified 04/07/25 09:07) Abdominal Pain venlafaxine Adverse Reaction (Intermediate, Verified 04/07/25 09:07) Dizziness Do you need a note to return to daycare/school/sports/work: No HPI HPI Comments History of Present Illness Details History - The patient is a 35-year-old female pr esenting with severe pain in the right ear, radiating to the jaw and neck. - The pain began on Friday and was initi ally mild, leading the patient to suspect a wisdom tooth issue. - The pain improved slightly but worsene d again, spreading to the neck. - The patient reports a sore throat on t he affected side and dizziness. - She has a constant sharp pain in the r ight ear. - The patient has a history of wisdom to oth eruption, which may be related to the current symptoms. - She has no fever, chills, CP, SOB, kwabena sea, vomiting, or cough. Physical Exam General: Cooperative, healthy appearing, comfortable, no acute distress and well developed Head: Normal to inspection Ears: External ears normal bilaterally. No tragus or mastoid tenderness noted. Cerumen noted in the canal. TM's not visualized. Face and sinus: Normal facial exam. No TTP of the sinuses. Neck: Normal visual inspection. Full ROM. No lymphadenopathy noted. Pain radiating into the neck. Respiratory: Normal respiratory effort and able to speak in complete sentences. Clear to auscultation bilaterally. No w/r/r noted. Cardiac: RRR, no m/r/g noted. Normal S1 and S2 noted. Skin: No rashes or lesions noted Neuro: Patient oriented x3 Patient was informed and verbally consented to the use of an ambient scribe for clinic note documentation during this visit. [facility] Medical History Acute respiratory disease Surgical History Hx of left knee surgery Family History Father Hypertension Diabetes COPD (chronic obstructive pulmonary disease) Mother No problems noted. 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 Cognitive needs: No Hearing needs: No Vision needs: No Physical Exam Vital Signs: Last Vital Signs Temp 98.3 F 04/07/25 09:01 Pulse 86 04/07/25 09:01 BP 130/82 04/07/25 09:01 Pulse Ox 99 04/07/25 09:01 Oxygen Delivery Method Room Air 04/07/25 09:01 BMI result Body Mass Index 41.0 Office Procedures Cerumen Removal From which ear canal was the cerumen removed: bilateral Removal: irrigation Notes: patient tolerated procedure well, no complications and ear canal clear [id number] Irrigation/Lavage Assessment & Plan Assessment & Plan (1) Right ear pain: Code(s): H92.01 - Otalgia, right ear (2) Cerumen impaction: Code(s): H61.20 - Impacted cerumen, unspecified ear Qualifiers: Laterality: bilateral Qualified Code(s): H61.23 - Impacted cerumen, bilateral Plan Most likely cerumen impaction vs OE vs OM vs wisdom teeth Plan - Plan to remove impacted cerumen to alleviate pain and assess for any underlying infection. - Monitor for resolution of symptoms post cerumen removal and reassess if pain persists. - Reassessment after removal revealed erythema in both canals and normal TMs - will send her drops for the ears for 7 days - tylenol or motrin as needed for pain - avoid q-tips - debrox drops OTC after treatment - follow up with PCP Orders: Orders AMB Cerumen Removal Today H61.23 - Impacted cerumen, bilateral Medications: New [id number]-[id number]-MB 3.5-10,000-1 mg/mL-unit/mL-% 4 drps otic (ear) right Q8H 10 mL 0RF 7 days Coding Level of Care Code Est Pt Level 3 (73565) Diagnoses Right ear pain H92.01 Bilateral impacted cerumen H61.23 Laterality: bilateral CPT Codes Office Procedure - CPT: 80111-Isj Irrigation/Lavage ([id number])
== END 2025-04-07 10:02 | disposition home or self-care (01) ==
PROVIDERS: PCP Internal Medicine; Visit Provider Physician Assistant Medical
DX: H92.01 Otalgia, right ear (principal); H61.23 Impacted cerumen, bilateral

== ENCOUNTER → 2025-04-07 08:59 | Outpatient (BNVA) | payer OTHER, SELFPAY | PROVIDERS: PCP Internal Medicine; Visit Provider Physician Assistant Medical | DX: H92.01 Otalgia, right ear (principal); H61.23 Impacted cerumen, bilateral | CPT/HCPCS: 69209; 99212 ==

== ENCOUNTER 2025-05-19 09:59 | Outpatient (AMB) | payer OTHER, SELFPAY ==
[2025-05-19 10:05] VITALS: BP 116/80; PULSE 70; TEMP 36.7; O2SAT 99; BMI 40.6
--- NOTE | 2025-05-19 10:05 | AM.OFFWIN_ITS ---
Intake Vital Signs 3 05/19/25 10:05 Height 5 ft Weight 208 lb BMI 40.6 BP 116/80 Blood Pressure Location Lt brachial Position Sitting Pulse 70 Pulse Source Pulse Oximeter Temp 98.1 F Temp Source Oral Pulse Oximetry (%) 99 Oxygen Delivery Method Room Air Intake Visit Reasons: EP bilat ear clogging/fluid Intake Note: pt presents with bilateral ear pain with crackling sounds, facial pain Patient Tobacco Use Status: Never used Tobacco Allergies fluoxetine Adverse Reaction (Intermediate, Verified 05/19/25 10:12) Abdominal Pain venlafaxine Adverse Reaction (Intermediate, Verified 05/19/25 10:12) Dizziness Medication List - Last Reconciled 05/19/25 by Lia Ko NP albuterol sulfate 90 mcg/actuation 2 puffs inhalation Q4-6H PRN clonazepam (Klonopin) 0.5 mg PO BID PRN 10 days clotrimazole 1% 1 appl topical TID 4 weeks dextromethorphan polistirex ER (Delsym 12 hour) 10 mL PO Q12H Do you need a note to return to daycare/school/sports/work: Yes HPI HPI Comments 2 History of Present Illness0 Details 35-year-old female presents to the walk- in clinic with complaints of left ear pain, itching, and a ?clogged? sensation for the past 3 days. Patient reports a similar episode in April, for which she was treated at this clinic with otic antibiotic drops for 5 days, completed as prescribed without improvement. She subsequently went to an urgent care center and was prescribed Amoxicillin x 10 days, which resulted in symptom relief for approximately 14 days. Symptoms then recurred 3 days ago. She denies any ear trauma or injury. Reports associated sinus pressure and nasal congestion. Denies fevers, chills, nausea, vomiting, dizziness, hearing loss, or ear drainage. COUNTS INCLUDE 234 BEDS AT THE [facility] Medical History (Updated 05/19/25 @ 12:34 by Lia Ko NP) Otomycosis Acute respiratory disease Surgical History Hx of left knee surgery Family History Father Hypertension Diabetes COPD (chronic obstructive pulmonary disease) Mother No problems noted. 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 Cognitive needs: No Hearing needs: No Vision needs: No Review of Systems Const All systems reviewed & are unremarkable except as noted in HPI and below Physical Exam Vital Signs: Last Vital Signs Temp 98.1 F 05/19/25 10:05 Pulse 70 05/19/25 10:05 BP 116/80 05/19/25 10:05 Pulse Ox 99 05/19/25 10:05 Oxygen Delivery Method Room Air 05/19/25 10:05 BMI result Body Mass Index 40.6 Const General: no acute distress Nutritional Appearance: obese Orientation/consciousness: patient oriented x3 HEENT Other: Neuro General: patient oriented x3, gait normal and moves all extremities Psych Speech and movement: Normal speech and movement present Assessment & Plan Assessment & Plan (1) Otomycosis: Code(s): B36.9 - Superficial mycosis, unspecified; H62.40 - Otitis externa in other diseases classified elsewhere, unspecified ear Plan: Ordered Lotrimin 1% OTIC Solution TID for 4 weeks. Keep ear clean and dry Avoid swimming and water exposure during treatment No cotton swabs, ear buds, or foreign objects in ear Use ear plug or cotton ball coated with petroleum jelly during showers if needed. Ordered Lotrisone Cream TID for 4 weeks. ENT Referral: If symptoms persist or recur despite appropriate antifungal therapy If extensive debris, severe pain, TM involvement, or immunocompromised patient. Red Flags Reviewed: Increasing pain, hearing loss, vertigo, fever, purulent drainage. Medications: New 2 clotrimazole-betamethasone 1-0.05 % DIRECTED 1 appl topical TID 45 grams 2RF 4 weeks B36.9 - Superficial mycosis, unspecified, H62.40 - Otitis externa in other diseases classified elsewhere, unspecified ear clotrimazole 1% APPLY 4 DROPS INTO THE AFFECTED EAR THREE TIME A DAY FOR 4 WEEKS. 1 appl topical TID 60 mL 4RF 4 weeks B36.9 - Superficial mycosis, unspecified, H62.40 - Otitis externa in other diseases classified elsewhere, unspecified ear Coding Level of Care Code Est Pt Level 4 (93505) Diagnoses Otomycosis B36.9; H62.40 Time Spent (min) 20
== END 2025-05-19 12:00 | disposition home or self-care (01) ==
PROVIDERS: PCP Internal Medicine; Visit Provider Nurse Practitioner Family
DX: B36.9 Superficial mycosis, unspecified (principal); H62.40 Otitis externa in other diseases classified elsewhere, unspecified ear

== ENCOUNTER → 2025-05-19 09:59 | Outpatient (BNVA) | payer OTHER, SELFPAY | PROVIDERS: PCP Internal Medicine; Visit Provider Nurse Practitioner Family | DX: B36.9 Superficial mycosis, unspecified (principal); H62.42 Otitis externa in other diseases classified elsewhere, left ear | CPT/HCPCS: 99212 ==